=== PATIENT | female | born 1950 | race Caucasian/White ===

== ENCOUNTER → 2016-12-02 | Outpatient (CLI) | payer MEDICARE ==
[~2016-12-02] MED LIST: ALLEGRA30 MG PO; ARICEPT23MG PO; ATENOLOL25 MG PO; ATIVAN0.5 MG PO; CALCIMIN-300300 MG PO; CARAFATE1 G1 PO; CARAFATE1 GM PO; CENTRUM SILVER1 TA1 PO; CIPRO500 MG PO; CITRACAL + D 311 TAB PO; CO Q10100 MG PO; CYCLOBENZAPRINE10 MG PO; DIFLUCAN150 MG PO; FLAGYL250 MG PO; FLAGYL500 MG PO; GABAPENTIN600 MG PO; GLUCOPHAGE1000 MG PO; HUMALOG100 U/ML SC; HYDROCODONE BIT1 T11 PO; INVOKANA100 M1 PO; JANUVIA100 MG PO; KLOR-CON M2020 ME1 PO; LANTUS100 U/ML SC; LEVOTHYROXINE0.1 MG PO; LISINOPRIL40 MG PO; LISINOPRIL5 MG PO; MAGNESIUM OXID400 MG PO; METFORMIN500 MG PO; NEURONTIN800 MG PO; NEXIUM20 MG PO; NORVASC5 MG PO; PAXIL10 MG PO; PAXIL40 M1 PO; PREDNISONE50 MG PO; PRESERVISION1 SGL PO; PREVACID30 M1 PO; PREVACID30 M2 PO; PRILOSEC40 MG PO; RANITIDINE HCL300 M2 PO; ROBAXIN500 MG PO; ROBAXIN750 MG PO; SEROQUEL XR150 MG PO; SEROQUEL XR50 MG PO; SEROQUEL50 MG PO; SIMVASTATIN40 MG PO; Synthroid,Lev100 MCG PO; ULTRAM50 MG PO; VICODIN 500 MG-1 TAB PO; VICODIN ES 7501 TA1 PO; VICTOZA6 MG/ML SC; VITAMIN D31000 I1 PO
== END | disposition home or self-care (01) ==
LOC: MRI 03:12
DX: M48.06 Spinal stenosis, lumbar region (principal); M51.26 Other intervertebral disc displacement, lumbar region; M43.16 Spondylolisthesis, lumbar region; M12.88 Other specific arthropathies, not elsewhere classified, other specified site

== ENCOUNTER → 2017-08-24 | Outpatient (CLI) | payer MEDICARE ==
[2017-08-24 10:13] LABS: BILIRUBIN NEGATIVE (NEGATIVE); BLOOD NEGATIVE (NEGATIVE); CLARITY CLEAR (CLEAR); COLOR YELLOW (YELLOW); GLUCOSE 2+ (NEGATIVE); KETONE TRACE (NEGATIVE); LEUKO ESTERASE NEGATIVE (NEGATIVE); NITRITE NEGATIVE (NEGATIVE); PH 5.5 (5.0-9.0); UROBILINOGEN 0.2 E.U./dl (0.2-1.0)
[2017-08-24 10:49] LABS: ALBUMIN 3.6 gm/dl (3.1-4.5); POTASSIUM 4.4 mmol/L (3.5-5.1)
[2017-08-24 11:00] LABS: BILIRUBIN, DIRECT 0.1 mg/dL (0.0-0.2); CREATININE 1.14 mg/dL (0.55-1.02); FREE T4 1.14 ng/dl (0.76-1.46); THYROID STIM HORMONE (HS) 3.92 uIU/ml (0.358-4.75); TOTAL PROTEIN 7.7 gm/dL (6.4-8.2)
[2017-08-24 11:16] LABS: RBC 0-2 rbc/hpf (0-2)
[2017-08-24 11:20] LABS: VITAMIN D, 25-HYDROXY 41.8 ng/mL (30-100)
== END | disposition home or self-care (01) ==
LOC: LAB 09:40
PROVIDERS: Internal Medicine
DX: E11.40 Type 2 diabetes mellitus with diabetic neuropathy, unspecified (principal); E55.9 Vitamin D deficiency, unspecified; E11.65 Type 2 diabetes mellitus with hyperglycemia; E04.1 Nontoxic single thyroid nodule; E78.5 Hyperlipidemia, unspecified

== ENCOUNTER 2018-05-15 08:49 | Inpatient (IN) | payer MEDICARE ==
[~2018-05-15] VITALS: Ht 165.1 cm; Wt 92.8 kg
[2018-05-15] VITALS (7 sets, daily range): BP systolic 138–168; BP diastolic 55–74
--- NOTE | ~2018-05-15 | PR ---
[place], [place] PROGRESS NOTE NAME: PAULINA CHOE UNIT #: [id number] ROOM: 503 DOCTOR: EMMA ALDRIDGE MD BIRTHDATE: [birth year] DOS: SUBJECTIVE: The patient is not having any new complaints. OBJECTIVE: VITAL SIGNS: Graphic trend shows a pressure 152/66, pulse of 90, respirations 18, temperature 98.8. LUNGS: Clear. HEART: Regular. ABDOMEN: Obese with colostomy in place. EXTREMITIES: Without any edema. Left leg is heavily wrapped after post-surgery. ASSESSMENT AND PLAN: 1. The patient with fibular fracture, status post open reduction and internal fixation. 2. Adult failure to thrive with falls. The patient to go to [facility] today. 3. Chronic elevated white cell count. We will continue to monitor that. Her blood cultures and urine cultures were negative. Lactic acid was normal. 4. Type 2 diabetes mellitus, insulin-dependent, fairly controlled. EMMA ALDRIDGE MD CM:PNTRANS 0827 0 EMMA ALDRIDGE MD 05/20/18 011 interface
--- NOTE | ~2018-05-15 | EKG ---
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
--- NOTE | ~2018-05-15 | DS ---
[place], [place] DISCHARGE SUMMARY NAME: PAULINA HCOE [facility] #: [id number] UNIT #: [id number] ROOM: 503 DOCTOR: EMMA ALDRIDGE MD BIRTHDATE: [birth year] DOS: 05/19/2018 DIAGNOSES: 1. Fall with fracture of the fibula left and also second metatarsal. 2. Multiple falls with ambulatory dysfunction. 3. Major depression, mild, recurrent. 4. Insulin-dependent diabetes mellitus. 5. Chronic kidney disease stage 3. 6. History of transient ischemic attack. 7. Benign hypertension. 8. History of colostomy placement following colonic perforation from a colonoscopy. DISCHARGE MEDICATIONS: Atenolol 50 mg daily, Aricept 23 mg daily, multivitamin 1 tablet daily, PreserVision 1 tablet twice a day, simvastatin 40 daily, Carafate 1 gram t.i.d., lorazepam 0.5 mg twice a day p.r.n., levothyroxine 0.1 mg daily, gabapentin 800 t.i.d., metformin 1000 b.i.d., Paxil 40 daily, Seroquel 50 at bedtime and p.r.n., insulin sliding scale, mag oxide 400 twice a day, lisinopril 40 daily, vitamin D 5000 units daily, potassium 20 daily, tramadol 50 twice a day, Lantus 45 units subcutaneous 3 times a day; Victoza, which is increased to 1.2 mg daily, she is usually taking 0.6; Tylenol 650 q. 6 hours p.r.n. for pain. HOSPITAL COURSE: This patient is 68 years old, had a fall at home and was brought into the Emergency Room because she was unable to walk and was found to have a left fibular fracture. After admission, Dr. Trevino was consulted. The patient was taken for surgery on the third day, the hold was because of elevated white cell count, has continued to remain elevated, even though the urine and blood cultures have come back negative. The patient has a colostomy and does not have any evidence of infection. She is not running any fever. She is hemodynamically stable. The patient after surgery continues to remain stable without any new complaints. Pain is controlled with p.o. pain medications. Last labs are from 05/18/2018, glucose 144, BUN 15, creatinine 0.80, sodium 137, potassium 4.0, WBC count is 12.4, hemoglobin 10.8, hematocrit 74.7 Please also start the patient on Ceftin 250 twice a day for 5 days and please do a CBC on Tuesday. [place], [place] DISCHARGE SUMMARY NAME: PAULINA CHOE UNIT #: [id number] ROOM: [facility] DOCTOR: EMMA ALDRIDGE MD BIRTHDATE: [birth year] EMMA ALDRIDGE MD CM:DISCHARG 9 1 EMMA ALDRIDGE MD 05/19/18911 interface
--- NOTE | ~2018-05-15 | WRIGHTHP ---
[place], [place] PATIENT HISTORY AND PHYSICAL EXAM [id number] UN[facility] #: [id number] ROOM: 503 DOCTOR: EMMA ALDRIDGE MD BIRTHDATE: [birth year] DOS: 05/15/2018 HISTORY OF PRESENT ILLNESS: The patient is 68-year-old. The patient comes in with complaints of pain in the left ankle. The patient apparently had a fall at home and has been increasingly having a hard time putting weight on it. As per the family members, she has had multiple falls lately and has a very unsteady gait also, so she was brought to the Emergency Room where she was evaluated and was found to have a fibular fracture as well as comminuted fracture of the base of the second metatarsal. The patient has been admitted for further evaluation. This morning complaints of pain, but otherwise is not having any complaints. Denies any chest pains, palpitations or shortness of breath. PAST MEDICAL HISTORY: Significant for: 1. Last hospitalization in December 2013. 2. She has history of major depression, mild, recurrent. 3. Insulin-dependent diabetes mellitus. 4. Chronic kidney disease stage 3. 5. History of TIA. MEDICATIONS: She is on atenolol 25 b.i.d., vitamin D 5000 units daily, cyclobenzaprine 10 t.i.d., donepezil 23 mg at bedtime, gabapentin 800 mg t.i.d., levothyroxine 0.1 mg daily, lisinopril 40 daily, lorazepam 0.5 IV twice a day, mag oxide 400 b.i.d., metformin 1000 b.i.d., Paxil 40 daily, potassium 20 daily, Seroquel 50 bedtime, simvastatin 40 daily, Carafate 1 gram t.i.d. tramadol 50 twice a day, Victoza 0.6, Lantus insulin 45 units subcutaneous 3 times a day. SOCIAL HISTORY: Nonsmoker, does not use any alcohol. PHYSICAL EXAMINATION: GENERAL: She is awake and alert and oriented. VITAL SIGNS: Graphic trend shows that she is afebrile, blood pressure is 132/70, pulse of 76, respirations 18, afebrile. LUNGS: Diminished breath sounds. No wheezes, rales or rhonchi heard. HEART: Regular. ABDOMEN: Obese, soft, nontender. EXTREMITIES: Without any edema on the right, left in a splint. LABORATORY DATA: At the time of admission: Urine culture, no bacterial growth. Lactic acid 2.9. CT of the head negative except for small vessel disease of the brain, osteoarthritis of cervical spine along with spurs. Comprehensive: Glucose 453, BUN 13, creatinine 1.11, sodium 131, potassium 4.3, chloride 99, lipase 442. C-reactive protein 1. 70. Troponin 0.05. WBC count is 14.8. ASSESSMENT AND PLAN: 1. This is a patient who presents after a fall. She has history of multiple falls with frailty. The patient will be admitted. Consult Dr. Trevino. 2. Lactic acidosis, elevated white cell count. Urine culture is already negative. Lactic acid slowly coming down. IV fluids will be ordered and repeat lactic acid and white cell count will be obtained. 3. Type 2 diabetes mellitus, insulin-dependent, poorly controlled. Coverage [place], [place] PATIENT HISTORY AND PHYSICAL EXAM NAME: PAULINA CHOE UNIT #: [id number] ROOM: [facility] DOCTOR: EMMA ALDRIDGE MD BIRTHDATE: [birth year] scale will be ordered. She is on multiple medications. Increase the Victoza. 4. High risk for fall. She is on gabapentin, lorazepam, Seroquel and Flexeril. Polypharmacy needs to be addressed. EMMA ALDRIDGE MD CM:HISPHYS:PATIENT HISTORY AND PHYSICAL EXAMINATION 5 3 EMMA ALDRIDGE MD 05/16/18 0935 interface
--- NOTE | ~2018-05-15 | PR ---
[place], [place] PROGRESS NOTE NAME: PAULINA CHOE UNIT #: [id number] ROOM: 503 DOCTOR: EMMA ALDRIDGE MD BIRTHDATE: [birth year] DOS: SUBJECTIVE: The patient is doing fine without any complaints other than some discomfort in the left leg. OBJECTIVE: VITAL SIGNS: Graphic trend shows a pressure 134/51, pulse of 85, respirations 12, temperature 98.5. LUNGS: Clear. HEART: Regular. ABDOMEN: Obese, soft. EXTREMITIES: Without any edema. Left leg in a splint. LABORATORY DATA: Urine culture negative. Blood cultures negative. Lactic acid normal at 1.1. White cell count down to 11.7, platelets 423, hemoglobin 10.9, hematocrit 36.7. BMP: Glucose 254. Electrolytes normal. BUN and creatinine normal. ASSESSMENT AND PLAN: 1. A 68-year-old patient status post fall with fibular fracture, awaiting surgical stabilization, scheduled for tomorrow. 2. Elevated white cell count, possible stress effect. No underlying infectious process noted. The patient is hemodynamically stable. Cultures are negative. Lactic acid normalized. 3. Type 2 diabetes mellitus, insulin-dependent, Victoza dosage was increased. Further adjustments in meds to be made. EMMA ALDRIDGE MD CM:PNTRANS 0826 0 EMMA ALDRIDGE MD 05/18/18120 interface
--- NOTE | ~2018-05-15 | O ---
[place], [place] OPERATIVE NOTE [id number] #: [id number] ROOM: 503 DOCTOR: COLTEN TREVINO DO BIRTHDATE: [birth year] DOS: 05/18/2018 PREOPERATIVE DIAGNOSIS: Left distal fibular fracture. POSTOPERATIVE DIAGNOSIS: Left distal fibular fracture. OPERATIVE PROCEDURE: Open reduction and internal fixation of left distal fibular fracture. SURGEON: Colten Trevino DO FIRST ASSISTANTS: Martin and Pita. ANESTHESIOLOGIST: LAMAR Contreras. ANESTHESIA: General LMA intubation. INDICATIONS: The patient is a 68-year-old female with a fall on 05/15/2018, suffering a fracture of the left distal fibula with angulation and displacement. The risks and benefits of the surgery were explained to the patient preoperatively. Preoperative labs and x-rays were obtained. The patient was medically optimized. PROCEDURE IN DETAIL: The patient was brought to the operative suite, placed supine on the operative table and the general anesthetic with LMA intubation was performed. The left lower extremity had been previously marked in the holding room. The left lower extremity was prepped and draped in the usual orthopedic manner. Tourniquet was applied to the left upper thigh. The extremity was exsanguinated and the tourniquet was inflated to 350 mmHg. The fracture was evaluated under C-arm. A lateral incision was planned over the distal fibular shaft. The incision was made sharply with a scalpel approximately 14 cm. Subcutaneous tissue was spread down to the level of the bone. The periosteum was cleared from the immediate fracture site and any hematoma was cleared as well. A direct reduction was performed and held with a bone holding clamp. A lag screw was placed from anterior to posterior using the standard technique. A partially threaded cancellous screw measuring 18 mm was placed. Positioning was evaluated under C-arm in multiple planes. When this was found to be adequate, a 7-hole 1/3rd tubular plate was bent to the configuration of the distal fibula. The plate holes were drilled and filled with the appropriate size cortical and cancellous screws. C-arm was utilized intermittently to evaluate the positioning of the plate and screws. When this was completed, the ankle was evaluated for stability and noted to be stable. The area was copiously irrigated with normal saline and closed in a layered fashion with 2-0 and 3-0 Vicryl followed by skin tri. The area was injected with Marcaine 0.5% plain. An additional x-ray was obtained at the foot to evaluate the base of the second metacarpal fracture. This appeared to be in a nondisplaced position. The dressing was performed utilizing Xeroform, 4 x 4s, cast padding, ABDs and a well-padded posterior splint with a reinforcing stirrup. The splint was extended to the end of the toes due to the second metacarpal fracture. The [place], [place] OPERATIVE NOTE NAME: PAULINA CHOE UNIT #: [id number] ROOM: [facility] DOCTOR: COLTEN TREVINO DO BIRTHDATE: [birth year] tourniquet was released. The anesthetic was reversed. The patient was taken to the recovery room in satisfactory condition. Sponge and needle count correct. ESTIMATED BLOOD LOSS: 10 mL. SPECIMENS: None. DRAINS: None. PACKING: None. COMPLICATIONS: None. FINDINGS: Nondisplaced fracture of the second metatarsal base, displaced fracture of the distal fibular spiral oblique. IMPLANTS: Synthes 7-hole 1/3rd tubular plate, Synthes screws 4.0 partially threaded cancellous 18 mm, 4.0 fully threaded cancellous 20 mm, 18 mm, 16 mm, 3.5, fully threaded cortical screws 16 mm, 16 mm, 14 mm. COLTEN TREVINO DO CM:OPRECORD:OPERATIVE NOTE 1625 47 COLTEN TREVINO DO 05/26/189 interface
[2018-05-15 09:26] LABS: BASO # 0.2 10*3/uL (0.0-0.1); EOS # 0.3 10*3/uL (0.0-0.4); EOS % 1.8 % (1.0-4.0); HEMATOCRIT 38.6 % (37.0-47.0); HEMOGLOBIN 11.5 g/dl (12.0-16.0); LYMPH # 1.9 10*3/uL (1.3-4.4); LYMPH % 12.5 % (27.0-41.0); MEAN CELL VOLUME 72.7 fl (81.0-99.0); MEAN CORPUSCULAR HGB 21.7 pg (27.0-31.0); MEAN CORPUSCULAR HGB CONC 29.8 g/dl (33.0-37.0); MEAN PLATELET VOLUME 9.4 fl (9.6-12.3); MONO # 0.7 10*3/uL (0.1-1.0); MONO % 4.5 % (3.0-9.0); NEUT # 11.8 10*3/uL (2.3-7.9); NEUT % 79.8 % (47.0-73.0); PLATELET COUNT AUTOMATED 456 10*3/uL (130-400); RED BLOOD COUNT 5.31 10*6/uL (4.10-5.10); RED CELL DISTRI WIDTH 18.7 % (0-14.5); WHITE BLOOD COUNT 14.8 10*3/uL (4.8-10.8)
[2018-05-15 09:34] LABS: ACT PARTIAL THROMBO TIME 21.4 SECONDS (20.8-31.5)
[2018-05-15 09:40] LABS: ALBUMIN 3.3 gm/dl (3.1-4.5); ALKALINE PHOSPHATASE 143 U/L (45-117); BUN 13 mg/dl (7-24); CHLORIDE 99 mmol/L (98-107); CREATININE 1.11 mg/dL (0.55-1.02); LIPASE 442 U/L (73-393); POTASSIUM 4.3 mmol/L (3.5-5.1); SGOT/AST 33 IU/L (3-35); SGPT/ALT 48 U/L (12-78); SODIUM 131 mmol/L (136-145)
[2018-05-15 09:51] LABS: TROPONIN I < 0.015 ng/ml (<0.045)
[2018-05-15 11:18] LABS: BILIRUBIN NEGATIVE (NEGATIVE); BLOOD TRACE-LYSED (NEGATIVE); CLARITY CLEAR (CLEAR); COLOR YELLOW (YELLOW); GLUCOSE 3+ (NEGATIVE); KETONE 1+ (NEGATIVE); LEUKO ESTERASE NEGATIVE (NEGATIVE); NITRITE NEGATIVE (NEGATIVE); SPECIFIC GRAVITY 1.015 (1.005-1.030); UROBILINOGEN 0.2 E.U./dl (0.2-1.0)
[2018-05-15 11:44] LABS: BACTERIA TRACE
[2018-05-15] MEDS ORDERED: CYCLOBENZAPRINE10 MG PO (15:41)
[2018-05-15] MEDS ORDERED: VICTOZA 3-PAK6 MG/ML SC (15:42)
[2018-05-15] MEDS ORDERED: TRAMADOL HCL50 MG PO (15:43)
[2018-05-15] MEDS ORDERED: LANTUS SOL100 UNIT/1 SQ (15:44)
[2018-05-15] MEDS ORDERED: TYLENOL325 M3 PO (15:55)
[2018-05-15] MEDS ORDERED: VICTOZA 2-0.6 MG/0.1 SQ (16:48)
[2018-05-16] VITALS: BP 153/64
[2018-05-16 08:00] VITALS: BP 147/58
[2018-05-16 10:20] LABS: BASO # 0.1 10*3/uL (0.0-0.1); EOS # 0.3 10*3/uL (0.0-0.4); EOS % 2.1 % (1.0-4.0); HEMATOCRIT 36.2 % (37.0-47.0); HEMOGLOBIN 10.7 g/dl (12.0-16.0); LYMPH # 2.4 10*3/uL (1.3-4.4); MEAN CELL VOLUME 72.5 fl (81.0-99.0); MEAN CORPUSCULAR HGB 21.4 pg (27.0-31.0); MEAN CORPUSCULAR HGB CONC 29.6 g/dl (33.0-37.0); MEAN PLATELET VOLUME 9.3 fl (9.6-12.3); MONO # 0.8 10*3/uL (0.1-1.0); MONO % 6.7 % (3.0-9.0); NEUT # 8.3 10*3/uL (2.3-7.9); NEUT % 69.7 % (47.0-73.0); PLATELET COUNT AUTOMATED 446 10*3/uL (130-400); RED BLOOD COUNT 4.99 10*6/uL (4.10-5.10); RED CELL DISTRI WIDTH 18.7 % (0-14.5); WHITE BLOOD COUNT 11.9 10*3/uL (4.8-10.8)
[2018-05-16 12:00] VITALS: BP 152/62
[2018-05-16 16:00] VITALS: BP 160/73
[2018-05-16 20:00] VITALS: BP 145/72
[2018-05-17] VITALS: BP 149/65
[2018-05-17 06:07] LABS: BUN 14 mg/dl (7-24); CHLORIDE 102 mmol/L (98-107); CREATININE 0.91 mg/dL (0.55-1.02); POTASSIUM 4.3 mmol/L (3.5-5.1); SODIUM 137 mmol/L (136-145)
[2018-05-17 06:09] LABS: BASO # 0.2 10*3/uL (0.0-0.1); BASO % 1.3 % (0.0-1.0); EOS # 0.4 10*3/uL (0.0-0.4); EOS % 3.5 % (1.0-4.0); HEMATOCRIT 36.7 % (37.0-47.0); HEMOGLOBIN 10.9 g/dl (12.0-16.0); LYMPH # 3.3 10*3/uL (1.3-4.4); MEAN CELL VOLUME 72.7 fl (81.0-99.0); MEAN CORPUSCULAR HGB 21.6 pg (27.0-31.0); MEAN CORPUSCULAR HGB CONC 29.7 g/dl (33.0-37.0); MEAN PLATELET VOLUME 9.5 fl (9.6-12.3); MONO # 0.9 10*3/uL (0.1-1.0); MONO % 8.1 % (3.0-9.0); NEUT # 6.9 10*3/uL (2.3-7.9); NEUT % 58.8 % (47.0-73.0); PLATELET COUNT AUTOMATED 423 10*3/uL (130-400); RED BLOOD COUNT 5.05 10*6/uL (4.10-5.10); RED CELL DISTRI WIDTH 18.5 % (0-14.5); WHITE BLOOD COUNT 11.7 10*3/uL (4.8-10.8)
[2018-05-17 08:00] VITALS: BP 134/51
[2018-05-17 12:00] VITALS: BP 124/41
[2018-05-17 16:00] VITALS: BP 144/55
[2018-05-17 20:00] VITALS: BP 151/58
[2018-05-18] VITALS (13 sets, daily range): BP systolic 116–153; BP diastolic 50–82
[2018-05-18 06:35] LABS: BASO # 0.1 10*3/uL (0.0-0.1); BASO % 1.1 % (0.0-1.0); EOS # 0.6 10*3/uL (0.0-0.4); EOS % 4.6 % (1.0-4.0); HEMOGLOBIN 10.8 g/dl (12.0-16.0); LYMPH # 3.3 10*3/uL (1.3-4.4); MEAN CELL VOLUME 74.7 fl (81.0-99.0); MEAN CORPUSCULAR HGB 21.2 pg (27.0-31.0); MEAN CORPUSCULAR HGB CONC 28.4 g/dl (33.0-37.0); MEAN PLATELET VOLUME 9.5 fl (9.6-12.3); MONO # 0.9 10*3/uL (0.1-1.0); MONO % 7.5 % (3.0-9.0); NEUT # 7.4 10*3/uL (2.3-7.9); NEUT % 59.5 % (47.0-73.0); PLATELET COUNT AUTOMATED 414 10*3/uL (130-400); RED BLOOD COUNT 5.09 10*6/uL (4.10-5.10); RED CELL DISTRI WIDTH 19.2 % (0-14.5); WHITE BLOOD COUNT 12.4 10*3/uL (4.8-10.8)
[2018-05-18 06:50] LABS: BUN 15 mg/dl (7-24); CHLORIDE 102 mmol/L (98-107); SODIUM 137 mmol/L (136-145)
[2018-05-19] VITALS: BP 152/66
[2018-05-19 06:22] LABS: BASO # 0.1 10*3/uL (0.0-0.1); BASO % 0.8 % (0.0-1.0); EOS # 0.5 10*3/uL (0.0-0.4); EOS % 3.6 % (1.0-4.0); HEMOGLOBIN 10.1 g/dl (12.0-16.0); LYMPH # 1.9 10*3/uL (1.3-4.4); LYMPH % 14.9 % (27.0-41.0); MEAN CELL VOLUME 74.6 fl (81.0-99.0); MEAN CORPUSCULAR HGB 21.5 pg (27.0-31.0); MEAN CORPUSCULAR HGB CONC 28.9 g/dl (33.0-37.0); MEAN PLATELET VOLUME 9.3 fl (9.6-12.3); MONO # 0.9 10*3/uL (0.1-1.0); MONO % 6.9 % (3.0-9.0); NEUT # 9.6 10*3/uL (2.3-7.9); NEUT % 73.3 % (47.0-73.0); PLATELET COUNT AUTOMATED 405 10*3/uL (130-400); RED BLOOD COUNT 4.69 10*6/uL (4.10-5.10); RED CELL DISTRI WIDTH 18.8 % (0-14.5); WHITE BLOOD COUNT 13.1 10*3/uL (4.8-10.8)
[2018-05-19 08:00] VITALS: BP 154/60
[2018-05-19 12:00] VITALS: BP 150/68
== END 2018-05-19 14:52 | disposition other institution (70) | DRG 493 ==
LOC: ED 08:49 → EDHOLD 12:27 → 5E 12:27
PROVIDERS: Emergency Medicine; Internal Medicine; Orthopaedic Surgery
PROC: 0QSK04Z Reposition Left Fibula with Internal Fixation Device, Open Approach (ICD-10-PCS; principal; 2018-05-18)
DX: S82.832A Other fracture of upper and lower end of left fibula, initial encounter for closed fracture (principal); E87.2 Acidosis; R65.10 Systemic inflammatory response syndrome (SIRS) of non-infectious origin without acute organ dysfunction; F33.0 Major depressive disorder, recurrent, mild; E11.22 Type 2 diabetes mellitus with diabetic chronic kidney disease; N18.3 Chronic kidney disease, stage 3 (moderate); E11.65 Type 2 diabetes mellitus with hyperglycemia; I12.9 Hypertensive chronic kidney disease with stage 1 through stage 4 chronic kidney disease, or unspecified chronic kidney disease; R62.7 Adult failure to thrive; S92.322A Displaced fracture of second metatarsal bone, left foot, initial encounter for closed fracture; W18.39XA Other fall on same level, initial encounter; Y93.89 Activity, other specified; Y92.89 Other specified places as the place of occurrence of the external cause; Y99.8 Other external cause status; Z86.73 Personal history of transient ischemic attack (TIA), and cerebral infarction without residual deficits; Z88.1 Allergy status to other antibiotic agents; Z88.8 Allergy status to other drugs, medicaments and biological substances; Z93.3 Colostomy status; Z79.899 Other long term (current) drug therapy; Z91.81 History of falling

== ENCOUNTER → 2018-06-12 | Outpatient (CLI) | payer MEDICARE ==
[~2018-06-12] MED LIST changes: +LANTUS SOL100 UNIT/1 SQ; +TRAMADOL HCL50 MG PO; +TYLENOL325 M3 PO; +VICTOZA 2-0.6 MG/0.1 SQ; +VICTOZA 3-PAK6 MG/ML SC
== END | disposition home or self-care (01) ==
LOC: ORTHO 02:11
DX: S82.832D Other fracture of upper and lower end of left fibula, subsequent encounter for closed fracture with routine healing (principal); X58.XXXD Exposure to other specified factors, subsequent encounter; Z98.890 Other specified postprocedural states

== ENCOUNTER → 2018-07-14 | Outpatient (CLI) | payer MEDICARE | END | disposition home or self-care (01) | LOC: ORTHO 01:35 | DX: S92.322D Displaced fracture of second metatarsal bone, left foot, subsequent encounter for fracture with routine healing (principal); S82.292D Other fracture of shaft of left tibia, subsequent encounter for closed fracture with routine healing; S82.492D Other fracture of shaft of left fibula, subsequent encounter for closed fracture with routine healing; X58.XXXD Exposure to other specified factors, subsequent encounter ==

== ENCOUNTER → 2018-08-02 | Outpatient (CLI) | payer MEDICARE | END | disposition home or self-care (01) | LOC: ORTHO 02:20 | DX: S82.832D Other fracture of upper and lower end of left fibula, subsequent encounter for closed fracture with routine healing (principal); S92.325D Nondisplaced fracture of second metatarsal bone, left foot, subsequent encounter for fracture with routine healing; X58.XXXD Exposure to other specified factors, subsequent encounter ==

== ENCOUNTER 2018-11-20 10:58 | Inpatient (IN) | payer MEDICARE ==
[~2018-11-20] VITALS: Ht 167.6 cm; Wt 84.5 kg
[2018-11-20] VITALS (8 sets, daily range): BP systolic 147–180; BP diastolic 47–71
--- NOTE | ~2018-11-20 | PR ---
[place], [place] PROGRESS NOTE NAME: PAULINA CHOE UNIT #: [id number] ROOM: 507 DOCTOR: SCAR BARRAZA MD BIRTHDATE: [birth year] DOS: 11/23/2018 SUBJECTIVE: The patient is still complaining of dizziness. Blood pressure is slightly high. The patient is already on meclizine. OBJECTIVE: PHYSICAL EXAMINATION: GENERAL APPEARANCE: The patient is alert and oriented x 3, in no visible distress. Obesity and generalized weakness. VITAL SIGNS: Blood pressure 174/50, breathing 18 times per minute, temperature 98.4 degrees Fahrenheit, heart rate of 72 beats per minute. HEENT AND NECK: Exam within normal limits. CARDIOVASCULAR SYSTEM: Heart rate is regular in rate and rhythm. S1 and S2 normally audible. LUNGS: Clear to auscultation. ABDOMEN: Soft, nontender. No obvious organomegaly. Bowel sounds are present. EXTREMITIES: Without significant cyanosis or edema. IMPRESSION: 1. Persistent dizziness even after Antivert dose increased. I will check a carotid arterial Dopplers today, now. 2. Hypertension with elevated blood pressures, which can also result in dizziness. I will increase her Norvasc to 10 mg a day, starting today. 3. Urinary tract infection and leukocytosis. Urine cultures growing Enterococcus faecalis sensitive to Levaquin, which has already been started. 4. Major depression, recurrent, mild, treated and controlled with Paxil. 5. Mild leukocytosis, apparently from urinary tract infection. 6. Late onset Alzheimer's type dementia. The patient remains on Aricept. 7. Advance adult failure to thrive. The patient is working with physical therapy and we are taking bedsore and fall precautions. SCAR BARRAZA MD CM:PNTRANS 1040 1629 SCAR BARRAZA MD 11/23/18 1630 interface
--- NOTE | ~2018-11-20 | DS ---
[place], [place] DISCHARGE SUMMARY NAME: PAULINA CHOE [facility] #: [id number] UNIT #: [id number] ROOM: 507 DOCTOR: SCAR BARRAZA MD BIRTHDATE: [birth year] DOS: 11/25/2018 DISCHARGE DIAGNOSES: 1. Urinary tract infection with Enterococcus faecalis. 2. Chronic dizziness. 3. Benign essential hypertension. 4. Major depression, recurrent, mild. 5. Advanced adult failure to thrive. 6. Late onset Alzheimer's type dementia. 7. Type 2 diabetes mellitus. 8. Chronic kidney disease stage 3, 9. Diabetic nephropathy. 10. History of colonic perforation from colonoscopy with colostomy. 11. History of peripheral diabetic polyneuropathy. 12. Generalized anxiety disorder. 13. Hypothyroidism. 14. Vitamin D deficiency. 15. Morbid obesity. HOSPITAL COURSE: The patient presented to [facility] with increased complaint of weakness, difficulty in getting up and able to ambulate or transfer. Blood pressure was elevated. There was increased loss of balance and dizziness with generalized weakness. The patient was found to have urinary tract infection, which was appropriately treated. Urine cultures grew Enterococcus faecalis. The patient continued to complain of dizziness, for which we did further workup with carotid arterial Dopplers. An ear exam was also performed. The patient with some stiffness and tremors and difficulty with ambulation. I will give her a trial of Sinemet for a month to see if her symptoms improve. Major depression, recurrent, mild, treated with Paxil, asymptomatic. Altered mental status and metabolic encephalopathy from urinary tract infection, improved with treatment with antibiotics. Advance adult failure to thrive and ambulatory dysfunction. The patient worked with Physical Therapy. Left lower lobe pneumonia, treated with antibiotics. Acute benign positional vertigo, treated with Antivert. LABORATORY DATA: White cell count of 12,700, hemoglobin 9.8, platelets 503,000. DISCHARGE MANAGEMENT: Sinemet 50/250 three times a day, Lantus insulin 30 units subcutaneous daily, Tradjenta 5 mg a day, famotidine 20 mg a day, Paxil 40 mg a day, donepezil 20 mg daily, atenolol 50 mg a day, amlodipine 5 mg a day, metformin 1000 mg b.i.d., levothyroxine 100 mcg daily, tramadol 50 mg b.i.d., [place], [place] DISCHARGE SUMMARY NAME: PAULINA CHOE UNIT #: [id number] ROOM: 507 DOCTOR: SCAR BARRAZA MD BIRTHDATE: [birth year] Carafate 1 gram t.i.d., Naprosyn 375 mg b.i.d., gabapentin 800 mg 3 times a day, DuoNeb every 4 hours as needed, lorazepam 0.5 mg b.i.d. as needed for anxiety. SCAR BARRAZA MD CM:BECKY 30 30 SCAR BARRAZA MD 11/25/182130 interface
--- NOTE | ~2018-11-20 | PR ---
[place], [place] PROGRESS NOTE NAME: PAULINA CHOE UNIT #: [id number] ROOM: 507 DOCTOR: SCAR BARRAZA MD BIRTHDATE: [birth year] DOS: 11/24/2018 SUBJECTIVE: The patient is still complaining of significant dizziness, although she has been sleeping significantly with the present dose of Antivert. OBJECTIVE: VITAL SIGNS: Blood pressure 156/54, heart rate of 65 beats per minute, breathing 18 times per minute, temperature 98 degrees Fahrenheit. GENERAL APPEARANCE: The patient is alert and oriented x 3, in no visible distress. Generalized weakness. HEENT AND NECK: Exam within normal limits. CARDIOVASCULAR SYSTEM: Heart rate is regular in rate and rhythm. S1 and S2 normally audible. LUNGS: Clear to auscultation. ABDOMEN: Soft, nontender. No obvious organomegaly. Bowel sounds are present. Obesity. EXTREMITIES: Without significant cyanosis or edema. IMPRESSION AND PLAN: 1. Persistent complaints of dizziness, no seizure, no significant vertigo. The patient is being treated with Antivert. Ear exams have been normal. The blood pressures have improved with increase in treatment. Carotid arterial Dopplers showed less than 50% stenosis. The patient continues to do well. I will discharge her back to home tomorrow. 2. Benign essential hypertension with better controlled blood pressures after increase in dose of Norvasc yesterday. 3. Urinary tract infection and leukocytosis resolved with treatment for Enterococcus faecalis, positive urine cultures which were sensitive to Levaquin. The patient already on this antibiotic. 4. Major depression, recurrent, mild, treated and controlled with Paxil. Mild leukocytosis, apparently from urinary tract infection. 5. Obesity. The patient is working with Dietary. Obesity with BMI of 30. 6. Advanced adult failure to thrive. The patient working with physical therapy and we are taking bedsore and fall precautions. [place], [place] PROGRESS NOTE NAME: PAULINA CHOE UNIT #: [id number] ROOM: 507 DOCTOR: SCAR BARRAZA MD BIRTHDATE: [birth year] SCAR BARRAZA MD CM:PNTRANS 1704 SCAR BARRAZA MD 11/25/18 0307 interface
--- NOTE | ~2018-11-20 | PR ---
[place], [place] PROGRESS NOTE NAME: PAULINA CHOE UNIT #: [id number] ROOM: 507 DOCTOR: SCAR BARRAZA MD BIRTHDATE: [birth year] DOS: 11/21/2018 SUBJECTIVE: The patient is feeling quite dizzy any time she moves her head this morning. OBJECTIVE: VITAL SIGNS: Blood pressure 132/68, heart rate of 71 beats per minute, temperature 98.3 degrees Fahrenheit, pulse ox 93-95%, breathing 18 times per minute. GENERAL APPEARANCE: The patient is alert and oriented x 3, in no visible distress, except for morbid obesity HEENT AND NECK: Exam within normal limits. CARDIOVASCULAR SYSTEM: Heart rate is regular in rate and rhythm. S1 and S2 normally audible. LUNGS: Clear to auscultation. ABDOMEN: Soft, nontender. No obvious organomegaly. Bowel sounds are present. EXTREMITIES: Without significant cyanosis or edema. IMPRESSION AND PLAN: 1. The patient with acute benign positional vertigo, to be treated with Antivert. 2. Urinary tract infection with urine cultures growing more than 100,000 colonies, to be treated according to culture results. The patient has a white cell count of 12,700. 3. Advance adult failure to thrive. We are taking fall precautions. The patient is to work with Physical Therapy. 4. Late onset Alzheimer's type dementia. The patient is on Aricept. 5. Major depression, recurrent, mild, treated with Paxil. 6. Benign essential hypertension, treated with amlodipine. Blood pressure is monitored and treated and staying normal. 7. Altered mental status from metabolic encephalopathy related to urine infection, improving with treatment. 8. Adult failure to thrive and ambulatory dysfunction. The patient is working with Physical Therapy. 9. Left lower lobe pneumonia, being treated with antibiotic and being followed closely. [place], [place] PROGRESS NOTE NAME: PAULINA CHOE UNIT #: [id number] ROOM: 507 DOCTOR: SCAR BARRAZA MD BIRTHDATE: [birth year] SCAR BARRAZA MD CM:PNTRANS 1027 1707 SCAR BARRAZA MD 11/21/18 1707 interface
--- NOTE | ~2018-11-20 | PR ---
[place], [place] PROGRESS NOTE NAME: PAULINA CHOE UNIT #: [id number] ROOM: 507 DOCTOR: SCAR BARRAZA MD BIRTHDATE: [birth year] DOS: 11/22/2018 OBJECTIVE: GENERAL APPEARANCE: The patient is alert and oriented x 3, in no visible distress. Generalized weakness VITAL SIGNS: Blood pressure 141/62, heart rate of 72 beats per minute, afebrile, temperature 98.3 degrees Fahrenheit, pulse ox 94%. HEENT AND NECK: Exam within normal limits. CARDIOVASCULAR SYSTEM: Heart rate is regular in rate and rhythm. S1 and S2 normally audible. LUNGS: Clear to auscultation. ABDOMEN: Soft, nontender. No obvious organomegaly. Bowel sounds are present. EXTREMITIES: Without significant cyanosis or edema. IMPRESSION: 1. The patient with benign positional vertigo, not improved. I will increase Antivert 50 mg 3 times a day. As an outpatient, she will need ENT consult. There is no ENT consultation available at the hospital. 2. Bilateral ear exams showed wax in the left ear. Right ear exam was normal. 3. Advance of adult failure to thrive, we are taking fall precautions and bedsore precautions. The patient is working with physical therapy. 4. Late onset Alzheimer's type dementia, being treated with Aricept. 5. Urinary tract infection with Enterococcus faecalis sensitive to all antibiotics, but tetracycline. 6. Mild leukocytosis, white cell count of 12,700. I will switch her antibiotics to Levaquin. 7. Metabolic encephalopathy, altered mental status, improved with treatment of urinary tract infection. 8. Major depression, recurrent, mild, treated and controlled with Paxil, which is continued. SCAR BARRAZA MD CM:PNTRANS 1036 1628 SCAR BARRAZA MD 11/22/18 1629 interface
--- NOTE | ~2018-11-20 | WRIGHTHP ---
[place], [place] PATIENT HISTORY AND PHYSICAL EXAM NAME: PAULINA CHOE [facility] #: [id number] UNIT #: [id number] ROOM: 507 DOCTOR: SCAR BARRAZA MD BIRTHDATE: [birth year] DOS: 11/20/2018 HISTORY OF PRESENT ILLNESS: The patient is a 68-year-old female with a past medical history of; 1. Advanced adult failure to thrive. 2. Late onset Alzheimer's type dementia. 3. Benign essential hypertension. 4. Type 2 diabetes mellitus. 5. Major depression, recurrent, mild. 6. Chronic kidney disease stage 3, diabetic nephropathy. 7. Transient ischemic attack. 8. History of colonic perforation from colonoscopy in the past and colostomy. 9. Peripheral diabetic polyneuropathy. 10. Generalized anxiety disorder. 11. Hypothyroidism. 12. Vitamin D deficiency. 13. Morbid obesity. The patient is doing well. The patient presented to the Emergency Department at [facility] with complaints of weakness, difficulty in getting up and inability to ambulate, elevated blood pressures, loss of balance, dizziness and generalized weakness. In the ER, the patient was found to have a pneumonic infiltrate on the chest x-ray. The patient has not been complaining of choking on her food. REVIEW OF SYSTEMS: RESPIRATORY: No increasing shortness of breath. GASTROINTESTINAL: No nausea, vomiting, diarrhea, constipation. CARDIOVASCULAR SYSTEM: No chest pains or palpitations. ALLERGIES: Known allergies to CECLOR, MEPERIDINE. PHYSICAL EXAMINATION: GENERAL: Alert, oriented x 3, in no visible distress, generalized weakness, obesity. HEENT AND NECK: Extraocular movements are intact. Sclerae are anicteric. Oral mucosa is moist and clean. No obvious facial weakness. Neck is supple without any lymphadenopathy. No thyromegaly. No JVD. No carotid arterial bruits. LUNGS: Clear to auscultation. No wheezing. No rhonchi. CARDIOVASCULAR SYSTEM: Heart rate is regular in rate and rhythm. S1 and S2 normally audible. No significant murmur or any other abnormal cardiac sounds. ABDOMEN: Soft, nontender. No obvious organomegaly. Bowel sounds are present. No obvious herniation. EXTREMITIES: Without significant cyanosis or edema. Warm to touch. CENTRAL NERVOUS SYSTEM: Alert and oriented x 3. Cranial nerves II-XII are intact. Speech is normal. The patient is able to move all extremities. Normal muscle strength. Deep tendon reflexes are equal on both sides. Plantars were downgoing. LABORATORY DATA: Chest x-ray showing left lower lobe infiltrate. Cardiac enzymes were negative. Lactic acid level was elevated at 2.9. CT of the head [place], [place] PATIENT HISTORY AND PHYSICAL EXAM NAME: PAULINA CHOE UNIT #: [id number] ROOM: 507 DOCTOR: SCAR BARRAZA MD BIRTHDATE: [birth year] showed chronic small vessel disease, no acute finding. Normal serum electrolytes, sugar elevated at 208. IMPRESSION: 1. The patient presenting with left lower lobe pneumonia to be treated with antibiotic and the patient will be followed closely. 2. Adult failure to thrive, ambulatory dysfunction. The patient will be started on physical therapy and followed closely. We will take bedsore and fall precautions. 3. Altered mental status from metabolic encephalopathy related to infection, improving. 4. Type 2 diabetes mellitus. The patient continued on insulin. 5. Benign essential hypertension. The patient is on amlodipine. Blood pressures to be monitored and treated. 6. Major depression, recurrent, mild, treated with Paxil, which was continued. 7. Late onset Alzheimer's type dementia. The patient remains on Aricept. SCAR BARRAZA MD CM:HISPHYS:PATIENT HISTORY AND PHYSICAL EXAMINATION 52 08 SCAR BARRAZA MD 11/20/181907 interface
--- NOTE | ~2018-11-20 | EKG ---
[place], [place] ELECTROCARDIOGRAM REPORT NAME: PAULINA CHOE UNIT #: [id number] ROOM: 507 DOCTOR: ALBERTO DRAFT REPORT BIRTHDATE: [birth year] [facility] Test Date: 2018-11-20 Test Time: 14:29:00 Pat Name: PAULINA CHOE Department: Room: [facility] Gender: F Switch Box Installer: : 1950 Requested By: FRAN PEREZ Order Number: [id number] Reading MD: Nicole Shirley MD Measurements Intervals [place] Rate: 60 P: 61 KS: 147 QRS: 53 QRSD: 82 T: 144 QT: 493 QTc: 493 Interpretive Statements Sinus rhythm Probable left atrial enlargement Abnormal R-wave progression, late transition Abnormal T, consider ischemia, lateral leads Baseline wander in lead(s) V6 Compared to ECG 10/01/2018 03:50:27 T-wave abnormality now present Possible ischemia now present Electronically Signed On 11-20-2018 14:49:20 PDT by Nicole Shirley MD CM:EKGRPT:ELECTROCARDIOGRAM REPORT 1429 1449 FRAN DOMINGUEZ DRAFT REPORT FRAN PEREZ MD
--- NOTE | ~2018-11-20 | EKG ---
[place], [place] ELECTROCARDIOGRAM REPORT NAME: PAULINA CHOE UNIT #: [id number] ROOM: 507 DOCTOR: ALBERTO DRAFT REPORT BIRTHDATE: [address] 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
--- NOTE | ~2018-11-20 | EKG ---
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
[~2018-11-20 10:58] MED LIST changes: +AMLODIPINE BESYL5 MG PO; +Carafate1 GM PO; +DONEPEZIL HYDRO23 M1 PO; +GABAPENTIN800 MG PO; +HUMALOG100 UNIT/1 SQ; +K-TAB10 MEQ PO; +LEVOFLOXACIN750 M2 PO; +LEVOTHYROXINE100 MC1 PO; +NAPROSYN EC375 MG PO; +Ondansetron8 MG IV; +SERTRALINE HYDR50 MG PO; +SUCRALFATE1 GM PO; +TENORMIN50 MG PO; +ZOCOR40 MG PO; +ZOFRAN8 M1 IV
[2018-11-20 11:20] LABS: BASO # 0.1 10*3/uL (0.0-0.1); BASO % 1.1 % (0.0-1.0); EOS # 0.1 10*3/uL (0.0-0.4); HEMATOCRIT 35.6 % (37.0-47.0); HEMOGLOBIN 10.4 g/dl (12.0-16.0); LYMPH % 15.9 % (27.0-41.0); MEAN CELL VOLUME 68.5 fl (81.0-99.0); MEAN CORPUSCULAR HGB CONC 29.2 g/dl (33.0-37.0); MEAN PLATELET VOLUME 9.1 fl (9.6-12.3); MONO # 0.8 10*3/uL (0.1-1.0); NEUT # 9.5 10*3/uL (2.3-7.9); NEUT % 75.4 % (47.0-73.0); PLATELET COUNT AUTOMATED 526 10*3/uL (130-400); RED CELL DISTRI WIDTH 18.3 % (0-14.5); WHITE BLOOD COUNT 12.7 10*3/uL (4.8-10.8)
[2018-11-20 11:37] LABS: ALBUMIN 3.4 gm/dl (3.1-4.5); ALKALINE PHOSPHATASE 96 U/L (45-117); BUN 14 mg/dl (7-24); CHLORIDE 102 mmol/L (98-107); CREATININE 0.79 mg/dL (0.55-1.02); POTASSIUM 4.3 mmol/L (3.5-5.1); SGOT/AST 12 IU/L (3-35); SGPT/ALT 22 U/L (12-78); SODIUM 138 mmol/L (136-145); TOTAL PROTEIN 7.4 gm/dL (6.4-8.2)
[2018-11-20 11:38] LABS: TROPONIN I < 0.015 ng/ml (<0.045)
[2018-11-20 13:03] LABS: BILIRUBIN NEGATIVE (NEGATIVE); BLOOD NEGATIVE (NEGATIVE); CLARITY SL CLOUDY (CLEAR); COLOR YELLOW (YELLOW); GLUCOSE 2+ (NEGATIVE); KETONE TRACE (NEGATIVE); LEUKO ESTERASE NEGATIVE (NEGATIVE); NITRITE NEGATIVE (NEGATIVE); SPECIFIC GRAVITY 1.015 (1.005-1.030); UROBILINOGEN 0.2 E.U./dl (0.2-1.0)
[2018-11-20 13:27] LABS: BACTERIA 4+; MUCOUS 2+
--- NOTE | 2018-11-20 13:31 | NUR ---
PATIENT CRITICAL RESULT CALLED AT THIS TIME. LACTIC ACID 2.9. DR PEREZ NOTIFIED.
[2018-11-20] MEDS ORDERED: RANITIDINE HCL150 M1 PO (14:02)
[2018-11-20] MEDS ORDERED: PAROXETINE40 MG PO (14:03)
--- NOTE | 2018-11-20 17:00 | NUR ---
PT RESTING IN BED. RESP-EASY AND REGULAR. DENIES DIZZINESS AT THIS TIME. PT STATES NON-AMBULATORY FOR 3 WEEKS PER PT. BED ALARM ON. CALL LIGHT IN REACH.
[2018-11-20] MEDS ORDERED: LANTUS SOL100 UNIT/1 SC (19:33)
[2018-11-21] VITALS: BP 148/61
[2018-11-21 06:55] LABS: BASO # 0.1 10*3/uL (0.0-0.1); BASO % 1.1 % (0.0-1.0); EOS # 0.3 10*3/uL (0.0-0.4); EOS % 2.1 % (1.0-4.0); HEMATOCRIT 33.8 % (37.0-47.0); HEMOGLOBIN 9.8 g/dl (12.0-16.0); LYMPH # 2.1 10*3/uL (1.3-4.4); LYMPH % 16.7 % (27.0-41.0); MEAN CELL VOLUME 69.1 fl (81.0-99.0); MEAN PLATELET VOLUME 9.8 fl (9.6-12.3); MONO # 0.8 10*3/uL (0.1-1.0); MONO % 6.3 % (3.0-9.0); NEUT # 9.4 10*3/uL (2.3-7.9); NEUT % 73.5 % (47.0-73.0); PLATELET COUNT AUTOMATED 503 10*3/uL (130-400); RED BLOOD COUNT 4.89 10*6/uL (4.10-5.10); RED CELL DISTRI WIDTH 18.3 % (0-14.5); WHITE BLOOD COUNT 12.7 10*3/uL (4.8-10.8)
[2018-11-21 08:00] VITALS: BP 132/68
--- NOTE | 2018-11-21 08:14 | NUR ---
PHYSICAL THERAPY Nursing screen received. PT orders also received. Thank you. Renee Pedro,PT
--- NOTE | 2018-11-21 08:25 | NUR ---
Nursing screen received and chart review completed. Patient may require Occupational Therapy evaluation for discharge planning as she has insurance that will require a precert to return to SNF if needed. Thank you. Lydia Lu OTR/l
--- NOTE | 2018-11-21 09:00 | NUR ---
Wire Coating Machine Operator in to talk to patient. Patient states lives at home with her POA/friend Betty Montemayor. There are 6-8 steps in the home. Physician: Dr. Ricardo Coreas Pharmacy: [facility] Home health services: [facility] RN/PT/OT/AIDES/SW currently and would like to resume those services upon discharge Patient's level of ADLs: MODERATE ASSIST Patient has working utilities: yes DME: walker, wheelchair Follow-up physician's appointment after d/c: she prefers to make her own follow up appt after discharge Does patient want to access PORTAL?: no Discharge plan discussed with patient. She lives at home with her POA/friend Betty Montemayro. She needs moderate assistance with her ADLs and ambulates with a walker or gets around in a wheelchair. Discussed short term SNF and she refuses. She states the aides at [facility] last time didn't treat her right. Questioned another SNF and she refuses. Discussed home health care services and she currently has all services from [facility] and would like to continue those services upon discharge. [facility] Resource Guide pamphlet given to patient to see about having a wheelchair ramp installed as she is having difficulties with the steps. There are 3-4 steps in the front of the house along with 3-4 steps in the back of the house. When medically stable she will be discharged to home with the resumption of her [facility] services. . BIRGIT BILLINGSLEY
--- NOTE | 2018-11-21 11:42 | NUR ---
Faxed resume home health order to [facility].
[2018-11-21 12:00] VITALS: BP 147/76; BP 155/52
--- NOTE | 2018-11-21 14:16 | NUR ---
PHYSICAL THERAPY PAtient refuses PT this date. Attempted to encourage, "Not today"! Will attempt at a later date. Thank you for this referral. Renee Pedro,PT
[2018-11-21 16:00] VITALS: BP 144/51
[2018-11-21 20:00] VITALS: BP 141/52
[2018-11-22] VITALS: BP 141/62
--- NOTE | 2018-11-22 04:22 | NUR ---
24 HR chart check completed.
[2018-11-22 08:00] VITALS: BP 162/62
--- NOTE | 2018-11-22 08:30 | NUR ---
PHYSICAL THERAPY PAtient continues to refuse PT services. Encouraged patient and educated on the importance of participation, continues to refuse. Thank you for this referral. Renee Pedro,PT
--- NOTE | 2018-11-22 09:00 | NUR ---
Lending Manager in to see patient. No new needs or request at this time. When asked about working with PT she stated she was too dizzy to work with them yet. When medically stable she will be discharged to home with the resumption of her [facility] services.
--- NOTE | 2018-11-22 11:00 | NUR ---
NICOLASA Montemayor in room asking questions about applying for Medicaid. Notified Valentina in Med Assist of NICOLASA's phone number and questions.
[2018-11-22 12:00] VITALS: BP 159/68
--- NOTE | 2018-11-22 15:26 | NUR ---
Attempted to reach, JUDITH HernandezA/friend regarding discussing home care options with area on again. No success. Will try again later.
[2018-11-22 16:00] VITALS: BP 156/61
--- NOTE | 2018-11-22 19:10 | NUR ---
PT IS ASLEEP IN BED AT THIS TIME. RESPS ARE EASY AND NONLABORED. THERE APPEARS TO BE NO S/S OF DISTRESS. BED LOW, ALARM ON, CALL LIGHT WITHIN REACH. WILL CONTINUE TO MONITOR.
[2018-11-22 20:00] VITALS: BP 159/58
--- NOTE | 2018-11-22 22:24 | NUR ---
24 HR CHART CHECK COMPLETE.
[2018-11-23] VITALS: BP 156/64
[2018-11-23 08:00] VITALS: BP 174/50
--- NOTE | 2018-11-23 08:19 | NUR ---
PHYSICAL THERAPY PAtient continues to refuse all PT attempts. Renee January Pedro,PT
--- NOTE | 2018-11-23 10:21 | NUR ---
Nutritional Support Services Note: Appetite is good for meals, she is eating 100% of meals. NCS diet as ordered. Caregiver aware of diet and has a good understanding. Will follow if needed. No other Nutrition intervention needed at this time. Alesia Sainz Rdn Ld
[2018-11-23 12:00] VITALS: BP 164/65
[2018-11-23 16:00] VITALS: BP 150/54
[2018-11-23 20:00] VITALS: BP 153/65
[2018-11-24] VITALS: BP 160/57
--- NOTE | 2018-11-24 00:05 | NUR ---
PT REFUSING DA TREATMENTS T/O THE SHIFT.
--- NOTE | 2018-11-24 09:00 | NUR ---
Destination Imagination Coordinator in to see patient. No new needs or request at this time. When medically stable she will be discharged to home with the resumption of her OV services.
--- NOTE | 2018-11-24 11:57 | NUR ---
PHYSICAL THERAPY PAtient continues to refuse all PT services. Continue to educate patient on the importance of particpation. PAtient will not even attempt to sit EOB. D/C PT orders, patient refuses. Renee Pedro,PT
[2018-11-24 12:00] VITALS: BP 150/56
--- NOTE | 2018-11-24 12:00 | NUR ---
PT SITTING UP IN BED AT THIS TIME, EATING LUNCH. FAMILY AT BEDSIDE. RESPIRATIONS EASY AND UNLABORED ON ROOM AIR. NO S/S OF DISTRESS NOTED. ALL NEEDS MET. BLOOD SUGAR OBTAINED AND WNL, COVERAGE NEEDED. WILL CONTINUE TO MONITOR. CALL LIGHT IN REACH.
[2018-11-24 16:00] VITALS: BP 156/54
[2018-11-24 20:00] VITALS: BP 141/58
--- NOTE | 2018-11-24 20:30 | NUR ---
RESTING IN BED WITH EYES OPEN. HEP LOCK INTACT TO RIGHT FOREARM; SITE ASYMPTOMATIC. LUNGS VERY DIMINISHED BILATERALLY WITH NO COUGH NOTED AT THIS TIME. 02 INTACT AT 3LPM VIA NASAL CANNULA & IS HUMIDIFIED. NO EDEMA NOTED. CALL LIGHT WITHIN REACH.
--- NOTE | 2018-11-24 20:30 | NUR ---
RESTING IN BED; VOICES NO C/O AT THIS TIME. CALL LIGHT WITHIN REACH.
--- NOTE | 2018-11-24 22:00 | NUR ---
BLOOD SUGAR 149; NO COVERAGE REQUIRED.
[2018-11-25] VITALS: BP 155/57
--- NOTE | 2018-11-25 07:01 | NUR ---
PT REFUSED SATX PT IN NO DISTRESS SPO2 92% RA
[2018-11-25 08:00] VITALS: BP 180/62
--- NOTE | 2018-11-25 11:07 | NUR ---
PT REFUSES SATX
[2018-11-25 16:00] VITALS: BP 158/71
[2018-11-25] MEDS ORDERED: SINEMET 25-2501 EACH PO (16:09)
--- NOTE | 2018-11-25 17:30 | NUR ---
PT DISCHARGED AT THIS TIME. TRANSPORTED HOME VIA [facility] PER FAMILY AND PT REQUEST. IV REMOVED AND PRESSURE DRESSING APPLIED. PT AND FAMILY VERBALIZED UNDERSTANDING OF DISCHARGE INSTRUCTIONS.
== END 2018-11-25 17:30 | disposition home health service (06) | DRG 193 ==
LOC: ED 10:58 → EDHOLD 13:24 → 5E 13:24
PROVIDERS: Emergency Medicine; ADMIT Internal Medicine
DX: J18.9 Pneumonia, unspecified organism (principal); G93.41 Metabolic encephalopathy; N39.0 Urinary tract infection, site not specified; F33.0 Major depressive disorder, recurrent, mild; H81.10 Benign paroxysmal vertigo, unspecified ear; B95.2 Enterococcus as the cause of diseases classified elsewhere; R62.7 Adult failure to thrive; G30.1 Alzheimer's disease with late onset; F02.80 Dementia in other diseases classified elsewhere, unspecified severity, without behavioral disturbance, psychotic disturbance, mood disturbance, and anxiety; E11.22 Type 2 diabetes mellitus with diabetic chronic kidney disease; N18.3 Chronic kidney disease, stage 3 (moderate); I12.9 Hypertensive chronic kidney disease with stage 1 through stage 4 chronic kidney disease, or unspecified chronic kidney disease; E11.42 Type 2 diabetes mellitus with diabetic polyneuropathy; F41.1 Generalized anxiety disorder; E03.9 Hypothyroidism, unspecified; E55.9 Vitamin D deficiency, unspecified; E66.01 Morbid (severe) obesity due to excess calories; R26.2 Difficulty in walking, not elsewhere classified; Z88.8 Allergy status to other drugs, medicaments and biological substances; Z68.30 Body mass index [BMI] 30.0-30.9, adult

== ENCOUNTER 2019-05-15 18:33 | Inpatient (IN) | payer MEDICARE ==
[~2019-05-15] VITALS: Ht 167.6 cm; Wt 91.7 kg
[~2019-05-15 18:33] MED LIST changes: +LANTUS SOL100 UNIT/1 SC; +PAROXETINE40 MG PO; +RANITIDINE HCL150 M1 PO; +SINEMET 25-2501 EACH PO
[2019-05-15 18:41] VITALS: BP 137/44
--- NOTE | 2019-05-15 19:10 | NUR ---
REPORT FROM BIRGIT MARTÍNEZ ASSUMED CARE OF PT, TUCK POINTER HELPER AND OUTSIDE COLLECTOR AT BEDSIDE, PT RECEIVING NEBULIZER TREATMENT ORDERED
[2019-05-15 19:13] LABS: BILIRUBIN NEGATIVE (NEGATIVE); BLOOD NEGATIVE (NEGATIVE); CLARITY CLOUDY (CLEAR); COLOR YELLOW (YELLOW); GLUCOSE TRACE (NEGATIVE); KETONE TRACE (NEGATIVE); LEUKO ESTERASE NEGATIVE (NEGATIVE); NITRITE NEGATIVE (NEGATIVE); PH 6.5 (5.0-9.0); UROBILINOGEN 0.2 E.U./dl (0.2-1.0)
--- NOTE | 2019-05-15 19:17 | NUR ---
XRAY AT BEDSIDE FOR PORTABLE XRAYS ORDERED
[2019-05-15 19:35] LABS: BACTERIA 4+
--- NOTE | 2019-05-15 19:53 | NUR ---
COMPUTER CRASHED WHEN SCANNING MED. RJB WAS GIVEN BUT UNABLE TO SCAN BECAUSE MY NAME IS LOCKED INTO OTHER COMPUTER, HALF SCANNED
[2019-05-15 19:55] VITALS: BP 128/50
--- NOTE | 2019-05-15 20:01 | NUR ---
ROASTER HELPER AT BEDSIDE TO RE-EVALUATE PT
[2019-05-15 20:13] LABS: BASO # 0.2 10*3/uL (0.0-0.1); BASO % 0.9 % (0.0-1.0); EOS # 0.3 10*3/uL (0.0-0.4); EOS % 1.1 % (1.0-4.0); HEMATOCRIT 30.9 % (37.0-47.0); HEMOGLOBIN 8.5 g/dl (12.0-16.0); LYMPH # 3.2 10*3/uL (1.3-4.4); LYMPH % 13.4 % (27.0-41.0); MEAN CELL VOLUME 65.2 fl (81.0-99.0); MEAN CORPUSCULAR HGB 17.9 pg (27.0-31.0); MEAN CORPUSCULAR HGB CONC 27.5 g/dl (33.0-37.0); MEAN PLATELET VOLUME 9.1 fl (9.6-12.3); MONO # 1.4 10*3/uL (0.1-1.0); MONO % 5.7 % (3.0-9.0); NEUT # 18.6 10*3/uL (2.3-7.9); NEUT % 78.2 % (47.0-73.0); NUCLEATED RED BLOOD CELL 0.1 % (0.0-0.0); PLATELET COUNT AUTOMATED 575 10*3/uL (130-400); RED BLOOD COUNT 4.74 10*6/uL (4.10-5.10); RED CELL DISTRI WIDTH 20.4 % (0-14.5); WHITE BLOOD COUNT 23.8 10*3/uL (4.8-10.8)
[2019-05-15 20:29] LABS: ACT PARTIAL THROMBO TIME 22.8 SECONDS (20.0-32.1)
[2019-05-15 20:43] LABS: ALBUMIN 3.1 gm/dl (3.1-4.5); ALKALINE PHOSPHATASE 133 U/L (45-117); BUN 26 mg/dl (7-24); CHLORIDE 105 mmol/L (98-107); CREATININE 1.02 mg/dL (0.55-1.02); LIPASE 111 U/L (73-393); POTASSIUM 4.6 mmol/L (3.5-5.1); SGOT/AST 17 IU/L (3-35); SGPT/ALT 32 U/L (12-78); SODIUM 138 mmol/L (136-145); TOTAL PROTEIN 6.9 gm/dL (6.4-8.2)
[2019-05-15 20:48] LABS: TROPONIN I < 0.015 ng/ml (<0.045)
--- NOTE | 2019-05-15 21:00 | NUR ---
lactic acid result received from lab, 2.9 BEHAVIORAL INTERVENTIONIST made aware
--- NOTE | 2019-05-15 21:08 | NUR ---
PT PLACED ON 2 L/NC DUE TO O2 SAT DECREASING TO 89% WHILE RESTING, PT DENIES ANY COMPLAINTS, NO DISTRESS NOTED, AWAITING DISPOSITION
[2019-05-15 21:14] VITALS: BP 132/56
--- NOTE | 2019-05-15 21:25 | NUR ---
REPEAT CXR COMPLETE ORDERED
--- NOTE | 2019-05-15 22:35 | NUR ---
pt resting quietly, with no complaints, awaiting room assignment for admission, call delgado in reach
[2019-05-15 22:41] VITALS: BP 122/56
--- NOTE | 2019-05-15 23:04 | NUR ---
WAITING FOR FLOOR NURSE TO COM OUT OF SHIFT REPORT OR PT TRANSPORT TO FLOOR
--- NOTE | 2019-05-15 23:35 | NUR ---
CALLED TO 4 EAST TO SEE IF RN ID READY FOR PT, RN STATES THAT SHE WILL CALL BACK WHEN READY FOR PT TRANSPORT TO FLOOR
[2019-05-15 23:45] VITALS: BP 126/50
[2019-05-15 23:55] VITALS: BP 141/48
--- NOTE | 2019-05-15 23:55 | NUR ---
A 69, admitted to , under the services of EMMA Del Angel MD with a diagnosis of UTI, SEPSIS, PNEUMONITIS. Chief complaint is AMS. Patient arrived via bed from ER. Monitor applied. Initial assessment completed. Vital signs taken and recorded. EMMA DEL ANGEL MD notified of admission to the unit. Orders received. See assessment for past medical history, medications and allergies. Patient and/or family oriented to unit. Clothing/patient valuable form completed. SMITH PINK
--- NOTE | 2019-05-15 23:55 | NUR ---
PT ADMITTED TO [facility] WITH RN ON COMPLEMENT[facility] HEALTH THERAPISTS, SR, NORMAL SALINE INFUSING WITH NO REDNESS OR SWELLING NOTED, RESP EASY ON 2L/NC, BELONGINGS WITH ROOM MATE
--- NOTE | 2019-05-16 00:37 | NUR ---
CALLED AND INFORMED OG ADMISSION, UNABLE TO REVIEW HOME MEDS. ORDER PLACED PER WISHES, NS @60CC/HR ONTINUOUS, REGULAR DIET AND 1GRAM ROCEPHIN QD. STATED SHE WILL PLACE OTHER ORDERS TOMORROW
--- NOTE | 2019-05-16 07:30 | NUR ---
ARRIVED ON SHIFT, INTRODUCED TO PATIENT, BEDSIDE REPORT RECEIVED, NO NEEDS VOICED AT THIS TIME. WHITE BOARD UPDATED.
--- NOTE | 2019-05-16 07:54 | NUR ---
Shift chart check completed.
[2019-05-16 08:00] VITALS: BP 144/85
--- NOTE | 2019-05-16 09:30 | NUR ---
Plate Worker Helper in to talk to patient. Patient states lives at home with her POA/friend Betty Montemayor. There are 6-8 steps in the home. Physician: Dr. Ricardo Coreas Pharmacy: [facility] health services: she would like [facility] services on discharge Patient's level of ADLs: MODERATE ASSIST Patient has working utilities: yes DME: walker, wheelchair Follow-up physician's appointment after d/c: she prefers to make her own follow up appt after discharge Does patient want to access PORTAL?: no Discharge plan discussed with patient. She lives at home with her POA/friend Betty Montemayor. She needs moderate assistance with her ADLs and ambulates with a walker or gets around in a wheelchair. Discussed short term SNF and she refuses. Discussed home health care services and she would like [facility] as she has had them in the past. When medically stable she will be discharged to home with the [facility] services. BIRGIT BILLINGSLEY
[2019-05-16 12:00] VITALS: BP 151/56
[2019-05-16 16:00] VITALS: BP 154/57
--- NOTE | 2019-05-16 16:00 | NUR ---
PATIENT RESTING COMFORTABLY, FAMILY AT BEDSIDE, QUESTIONS & CONCERNS ANSWERED. PATIENT VOICED NO COMPLAINTS. NO DISTRESS NOTED. CALL LIGHT WITHIN REACH.
[2019-05-16 20:00] VITALS: BP 114/38
[2019-05-17 00:09] VITALS: BP 156/50
--- NOTE | 2019-05-17 01:52 | NUR ---
24 HR chart check completed.
[2019-05-17 06:26] LABS: BASO # 0.2 10*3/uL (0.0-0.1); EOS # 0.3 10*3/uL (0.0-0.4); EOS % 2.1 % (1.0-4.0); HEMATOCRIT 27.2 % (37.0-47.0); HEMOGLOBIN 7.3 g/dl (12.0-16.0); LYMPH # 2.4 10*3/uL (1.3-4.4); LYMPH % 15.9 % (27.0-41.0); MEAN CELL VOLUME 64.8 fl (81.0-99.0); MEAN CORPUSCULAR HGB 17.4 pg (27.0-31.0); MEAN CORPUSCULAR HGB CONC 26.8 g/dl (33.0-37.0); MEAN PLATELET VOLUME 9.2 fl (9.6-12.3); MONO # 1.2 10*3/uL (0.1-1.0); NEUT # 10.9 10*3/uL (2.3-7.9); NEUT % 72.5 % (47.0-73.0); PLATELET COUNT AUTOMATED 487 10*3/uL (130-400); RED CELL DISTRI WIDTH 20.1 % (0-14.5); WHITE BLOOD COUNT 15.1 10*3/uL (4.8-10.8)
[2019-05-17 06:54] LABS: CHLORIDE 109 mmol/L (98-107); CREATININE 0.92 mg/dL (0.55-1.02); POTASSIUM 4.1 mmol/L (3.5-5.1); SODIUM 139 mmol/L (136-145)
[2019-05-17 06:57] LABS: BUN 13 mg/dl (7-24)
[2019-05-17 08:00] VITALS: BP 145/63
--- NOTE | 2019-05-17 08:00 | NUR ---
IN TO SEE PT.
--- NOTE | 2019-05-17 10:00 | NUR ---
Environmental Protection Officer in to see patient. No new needs or request at this time. When medically stable she will be discharged to home with [facility] services. Per multidisciplinary discharge planning meeting patient's WBC is trending down, lactic acid has normalized, UC -, BC pending, she is received Merrem IV.
[2019-05-17 12:00] VITALS: BP 142/60
--- NOTE | 2019-05-17 13:22 | NUR ---
CALLED BACK FOR ADMISSION ORDERS. SEE MAR AND CONSULT ORDER.
[2019-05-17 16:00] VITALS: BP 156/56
--- NOTE | 2019-05-17 18:26 | NUR ---
Spoke with Dr. Vasquez regarding patients blood sugar. Home medications were reviewed. See new orders.
[2019-05-17 20:00] VITALS: BP 137/51
--- NOTE | 2019-05-17 20:41 | NUR ---
24 HR chart check completed.
--- NOTE | 2019-05-17 21:00 | NUR ---
RESTING WITH EYES CLOSED. NO DISTRESS NOTED. RESPIRATIONS EASY. LUNGS DIMINISHED. PULSE OX 93% RA. NON-PROD COUGH NOTED. ABD SOFT WITH NORMO BOWEL SOUNDS AND COLOSTOMY PATENT. GORDON DRAINING KARLI URINE. TRACE BLE EDEMA. CALL LIGHT WITHIN REACH. NO VOICED COMPLAINTS. BED ALARM MAINTAINED FOR SAFETY
[2019-05-18] VITALS: BP 138/56
--- NOTE | 2019-05-18 | NUR ---
SLEEPING. PULSE OX 88-90% RA. RESP PRESENT ON FLOOR AND PATIENT PLACED ON 2L. PULSE OX 96% 2L. CALL LIGHT WITHIN REACH. WILL MONITOR
--- NOTE | 2019-05-18 03:00 | NUR ---
SLEEPING. O2 IN USE AT 2L.
--- NOTE | 2019-05-18 06:00 | NUR ---
SLEPT THROUGHOUT NIGHT WITH NO DISTRESS NOTED. RESPIRATIONS EASY. O2 IN USE. CALL LIGHT WITHIN REACH. NO VOICED COMPLAINTS THIS SHIFT. BED ALARM MAINTAINED FOR SAFETY
--- NOTE | 2019-05-18 06:15 | NUR ---
BSG 212. GLUCOPHAGE ADMINISTERED, INSULIN NOT YET GIVEN
[2019-05-18 06:30] LABS: HEMATOCRIT 27.6 % (37.0-47.0); HEMOGLOBIN 7.5 g/dl (12.0-16.0); MEAN CELL VOLUME 65.1 fl (81.0-99.0); MEAN CORPUSCULAR HGB 17.7 pg (27.0-31.0); MEAN CORPUSCULAR HGB CONC 27.2 g/dl (33.0-37.0); MEAN PLATELET VOLUME 9.1 fl (9.6-12.3); PLATELET COUNT AUTOMATED 505 10*3/uL (130-400); RED BLOOD COUNT 4.24 10*6/uL (4.10-5.10); RED CELL DISTRI WIDTH 19.9 % (0-14.5); WHITE BLOOD COUNT 20.6 10*3/uL (4.8-10.8)
[2019-05-18 06:39] LABS: BUN 13 mg/dl (7-24); CHLORIDE 106 mmol/L (98-107); CREATININE 0.81 mg/dL (0.55-1.02); POTASSIUM 3.9 mmol/L (3.5-5.1); SODIUM 139 mmol/L (136-145)
[2019-05-18 06:51] LABS: BASOPHILS 2 % (0-1); TOTAL CELLS COUNTED 100 #CELLS
[2019-05-18 06:52] LABS: MICROCYTOSIS MODERATE; OVALOCYTES FEW; PLATELET SUFFICIENCY HIGH (NORMAL); POLYCHROMASIA SLIGHT; SCHISTOCYTES FEW
[2019-05-18 06:53] LABS: TOXIC GRANULATION SLIGHT
[2019-05-18 08:00] VITALS: BP 172/56
--- NOTE | 2019-05-18 08:03 | NUR ---
Faxed new home health order to [facility]
--- NOTE | 2019-05-18 09:00 | NUR ---
Diamond Sorter in to see patient. No new needs or request at this time. When medically stable she will be discharged to home with [facility] services. Per multidisciplinary discharge planning meeting patient's WBC trended down but has gone back up. Dr. Dahl consulted.
--- NOTE | 2019-05-18 09:27 | NUR ---
AWARE OF CONSULT.
--- NOTE | 2019-05-18 11:50 | NUR ---
GORDON CATH REMOVED. PT TOLERATED WELL. 600CC IN CATH BAG AT TIME OF D/C. SEE I&O. WILL MONITOR VOIDING PER ORDERS.
[2019-05-18 12:00] VITALS: BP 149/50
--- NOTE | 2019-05-18 13:53 | NUR ---
Nutritional Support Services Note: Pt is eating 100% of meals. Regular diet as odered. Pt is well taken care of at home. Ht.5'6 Wt.202#. No problems noted or other nutrition intervention needed at this time. Will follow. Encourage fluids. Alesia Sainz Rdn Ld
[2019-05-18 16:00] VITALS: BP 146/52
[2019-05-18 19:11] LABS: ABG BASE EXCESS 0.6 mmol/L (-2.0-2.0); ABG HCO3 23.9 mmol/l (22-26); ABG O2 SATURATION 88.1 % (95-97); ARTERIAL BLOOD GAS PCO2 34.1 mmHg (35-45); ARTERIAL BLOOD GAS PH 7.459 (7.35-7.45); ARTERIAL BLOOD GAS PO2 51.3 mmHg (80-90)
[2019-05-18 20:00] VITALS: BP 150/60
[2019-05-19] VITALS: BP 156/56
--- NOTE | 2019-05-19 07:30 | NUR ---
Patient resting quietly with no c/o discomfort. Respirations easy and regular. Vital signs stable. No overt distress. HUYEN YARBROUGH
[2019-05-19 08:00] VITALS: BP 171/72
--- NOTE | 2019-05-19 08:50 | NUR ---
24 HR chart check completed.
[2019-05-19 12:00] VITALS: BP 168/67
[2019-05-19 16:00] VITALS: BP 164/68
[2019-05-19 20:00] VITALS: BP 136/47
--- NOTE | 2019-05-19 23:40 | NUR ---
PATIENT'S IV SITE IN LEFT HAND PAINFUL. DISCONTINUED AND RESTARTED IN LEFT UPPER ARM WITH 22 GAUGE HEP LOCK.
[2019-05-20] VITALS: BP 112/48
[2019-05-20 08:00] VITALS: BP 141/56
[2019-05-20 12:00] VITALS: BP 123/49
[2019-05-20 16:00] VITALS: BP 124/41
[2019-05-20 20:00] VITALS: BP 125/44
--- NOTE | 2019-05-20 22:00 | NUR ---
Patient resting quietly with no c/o discomfort. Respirations easy and regular. Vital signs stable. No overt distress. BED ALARM MAINTAINE, PATIENT IS CLEAN AT THSI TIME, BRIEF D/C/I, PATIENT REPOSTIIONED. BED ALARM MAINTAINED, CALL LIGHT WITHIN REACH. SMITH PINK
[2019-05-21] VITALS: BP 130/47
--- NOTE | 2019-05-21 00:25 | NUR ---
24 HR chart check completed.
--- NOTE | 2019-05-21 01:00 | NUR ---
PATIENT HAD INCONT EPISODE, PATIENT CHANGED AND REPOSITIONED IN BED. BED ALARM MAINTAINED. CALL LIGHT WITHIN REACH.
--- NOTE | 2019-05-21 03:42 | NUR ---
SLEEPING, RESP ARE ERND NO DISTRESS NOTED. BED ALARM MAINTAINED. CALL LIGHT WITHIN REACH
[2019-05-21 06:09] LABS: BASO # 0.1 10*3/uL (0.0-0.1); BASO % 0.9 % (0.0-1.0); EOS # 0.5 10*3/uL (0.0-0.4); EOS % 3.4 % (1.0-4.0); HEMATOCRIT 27.3 % (37.0-47.0); HEMOGLOBIN 7.3 g/dl (12.0-16.0); LYMPH # 2.5 10*3/uL (1.3-4.4); LYMPH % 15.6 % (27.0-41.0); MEAN CELL VOLUME 67.7 fl (81.0-99.0); MEAN CORPUSCULAR HGB 18.1 pg (27.0-31.0); MEAN CORPUSCULAR HGB CONC 26.7 g/dl (33.0-37.0); MEAN PLATELET VOLUME 9.2 fl (9.6-12.3); MONO # 1.1 10*3/uL (0.1-1.0); NEUT # 11.2 10*3/uL (2.3-7.9); NEUT % 71.6 % (47.0-73.0); NUCLEATED RED BLOOD CELL 0.1 10*3/uL (0.0-0.0); NUCLEATED RED BLOOD CELL 0.3 % (0.0-0.0); PLATELET COUNT AUTOMATED 485 10*3/uL (130-400); RED BLOOD COUNT 4.03 10*6/uL (4.10-5.10); RED CELL DISTRI WIDTH 21.2 % (0-14.5); WHITE BLOOD COUNT 15.7 10*3/uL (4.8-10.8)
[2019-05-21 06:24] LABS: ALBUMIN 2.4 gm/dl (3.1-4.5); ALKALINE PHOSPHATASE 85 U/L (45-117); BUN 11 mg/dl (7-24); CHLORIDE 107 mmol/L (98-107); CREATININE 0.74 mg/dL (0.55-1.02); SGOT/AST 9 IU/L (3-35); SGPT/ALT 10 U/L (12-78); SODIUM 140 mmol/L (136-145); TOTAL PROTEIN 6.3 gm/dL (6.4-8.2)
[2019-05-21 08:00] VITALS: BP 156/54
--- NOTE | 2019-05-21 09:26 | NUR ---
Student Recruiter in to see patient. Discussed short term SNF vs HH. NICOLASA Hernández is at the bedside. The patient normally gets into a wheelchair with guidance from the POA. She does have [employer] services at home and will resume those services upon discharge. If patient is able to stand and pivot the patient and POA would like the patient to go home. If patient would require SNF then she would like to go to [facility]. site planner notified. Waiting on therapy recommendations.
[2019-05-21 10:48] LABS: ABG BASE EXCESS -0.6 mmol/L (-2.0-2.0); ABG HCO3 23.9 mmol/l (22-26); ABG O2 SATURATION 90.3 % (95-97); ARTERIAL BLOOD GAS PCO2 40.6 mmHg (35-45); ARTERIAL BLOOD GAS PH 7.386 (7.35-7.45); ARTERIAL BLOOD GAS PO2 54.9 mmHg (80-90)
--- NOTE | 2019-05-21 10:55 | NUR ---
DR TRINH NOTIFIED OF ABG RESULTS, HE STATED TO CALL HIM BACK WITH CXR RESULTS
[2019-05-21 12:00] VITALS: BP 153/56
--- NOTE | 2019-05-21 14:24 | NUR ---
Patient changed her mind and no longer wants [facility]. She wants her referral faxed to [facility]> Contacted facility and faxed referral. waiting on review/acceptance. requires 3 night stay
--- NOTE | 2019-05-21 15:33 | NUR ---
Discussed with patient and POA who is at the bedside regarding referral being sent over to [facility]. Both are agreeable.
[2019-05-21 16:00] VITALS: BP 138/53
[2019-05-21 20:00] VITALS: BP 153/55
--- NOTE | 2019-05-21 20:00 | NUR ---
Patient resting quietly with no c/o discomfort. Respirations easy and regular. Vital signs stable. No overt distress. WILL CONTINUE TO MONITOR PATIENT. CALL LIGHT WITHIN REACH AND BED IN LOWEST POSITION. BENEDICTO CHAVEZ
[2019-05-22] VITALS: BP 132/56
--- NOTE | 2019-05-22 01:17 | NUR ---
24 HR chart check completed.
--- NOTE | 2019-05-22 04:33 | NUR ---
SLEEPING, EYES CLOSED. NO DISTRESS NOTED, RESP ARE ERND ON 5L NC. CALL LIGHT WITHIN REACH
[2019-05-22 06:10] LABS: BASO # 0.1 10*3/uL (0.0-0.1); BASO % 0.9 % (0.0-1.0); EOS # 0.6 10*3/uL (0.0-0.4); EOS % 3.9 % (1.0-4.0); HEMATOCRIT 28.1 % (37.0-47.0); HEMOGLOBIN 7.6 g/dl (12.0-16.0); LYMPH % 20.1 % (27.0-41.0); MEAN CORPUSCULAR HGB 18.4 pg (27.0-31.0); MONO # 1.1 10*3/uL (0.1-1.0); MONO % 7.1 % (3.0-9.0); NEUT # 9.8 10*3/uL (2.3-7.9); NEUT % 66.2 % (47.0-73.0); NUCLEATED RED BLOOD CELL 0.1 10*3/uL (0.0-0.0); NUCLEATED RED BLOOD CELL 0.3 % (0.0-0.0); PLATELET COUNT AUTOMATED 505 10*3/uL (130-400); RED BLOOD COUNT 4.13 10*6/uL (4.10-5.10); RED CELL DISTRI WIDTH 22.4 % (0-14.5); WHITE BLOOD COUNT 14.8 10*3/uL (4.8-10.8)
[2019-05-22 06:27] LABS: ALBUMIN 2.5 gm/dl (3.1-4.5); ALKALINE PHOSPHATASE 85 U/L (45-117); BUN 9 mg/dl (7-24); CHLORIDE 105 mmol/L (98-107); CREATININE 0.65 mg/dL (0.55-1.02); POTASSIUM 3.8 mmol/L (3.5-5.1); SGOT/AST 14 IU/L (3-35); SGPT/ALT 10 U/L (12-78); SODIUM 139 mmol/L (136-145); TOTAL PROTEIN 6.3 gm/dL (6.4-8.2)
[2019-05-22 08:00] VITALS: BP 154/50
--- NOTE | 2019-05-22 08:30 | NUR ---
Occupational Therapy evaluation completed on 4 with full eval to follow. Precautions include fall risk;bed alarm, impaired balance, safety and activity tolerance for ADLs,moderate complexity level 72029 via chart review, testing and evaluation. Recommend OT per pOC and SNF to enable safe return home at prior level of independence. THank you. Lydia Lu OTR/l
--- NOTE | 2019-05-22 08:55 | NUR ---
PHYSICAL THERAPY Chart reviewed attemepted to see pt for evaluation unavailalbe at this time eating brekfast recieving meds will follow later in the AM thank you Tracey Sanchez PT
--- NOTE | 2019-05-22 10:53 | NUR ---
Patient referred to [facility], however she refused to work with therapist this morning. PT and OT evals are required for precert.
--- NOTE | 2019-05-22 11:00 | NUR ---
Boat Joiner Helper in to see patient. Discussed working with therapy in order to get evals for her precert to be started for [facility]. She is agreeable and will work with therapy. Therapy and meeting planner notified. Waiting for acceptance to [facility] and precert.
[2019-05-22 12:00] VITALS: BP 162/86
--- NOTE | 2019-05-22 12:20 | NUR ---
PHYSICAL THERAPY Eval completed see note for full details. Pt is moderated level of complexity 25537. PT to work on transfers, standing tolerance short distance amb, and strengthening. Recommend SNF at discharge, thank you. Tracey Sanchez PT
[2019-05-22 16:00] VITALS: BP 130/48
[2019-05-22 20:00] VITALS: BP 147/50
[2019-05-23] VITALS: BP 91/69
--- NOTE | 2019-05-23 01:31 | NUR ---
24 HR chart check completed.
[2019-05-23 06:25] LABS: BASO # 0.1 10*3/uL (0.0-0.1); EOS # 0.5 10*3/uL (0.0-0.4); EOS % 3.3 % (1.0-4.0); HEMATOCRIT 27.2 % (37.0-47.0); HEMOGLOBIN 7.2 g/dl (12.0-16.0); LYMPH # 2.9 10*3/uL (1.3-4.4); LYMPH % 19.8 % (27.0-41.0); MEAN CELL VOLUME 69.2 fl (81.0-99.0); MEAN CORPUSCULAR HGB 18.3 pg (27.0-31.0); MEAN CORPUSCULAR HGB CONC 26.5 g/dl (33.0-37.0); MEAN PLATELET VOLUME 9.6 fl (9.6-12.3); MONO # 1.1 10*3/uL (0.1-1.0); MONO % 7.4 % (3.0-9.0); NEUT # 9.6 10*3/uL (2.3-7.9); NEUT % 66.6 % (47.0-73.0); NUCLEATED RED BLOOD CELL 0.2 % (0.0-0.0); PLATELET COUNT AUTOMATED 476 10*3/uL (130-400); RED BLOOD COUNT 3.93 10*6/uL (4.10-5.10); RED CELL DISTRI WIDTH 23.5 % (0-14.5); WHITE BLOOD COUNT 14.4 10*3/uL (4.8-10.8)
[2019-05-23 06:56] LABS: ALBUMIN 2.3 gm/dl (3.1-4.5); ALKALINE PHOSPHATASE 79 U/L (45-117); BUN 9 mg/dl (7-24); CHLORIDE 106 mmol/L (98-107); CREATININE 0.62 mg/dL (0.55-1.02); POTASSIUM 3.9 mmol/L (3.5-5.1); SGOT/AST 9 IU/L (3-35); SGPT/ALT 11 U/L (12-78); SODIUM 141 mmol/L (136-145)
[2019-05-23 08:00] VITALS: BP 156/60
--- NOTE | 2019-05-23 08:15 | NUR ---
IN TO SEE PATIENT.
--- NOTE | 2019-05-23 08:15 | NUR ---
PHYSICAL THERAPY Patient seen this am 1;1 for therapy visit and was supine in bed upon therapist arrival. Patient identified by name / and presented with continuous O2-4L via NC. Patient reports increased chest congestion with unproductive cough, while transfering supine to sit EOB with MOD/MAX A. Patient tolerated several minutes static EOB sit with v/c to improve "slouched" seated posture. Patient completed several sit to stand transfers with use of wh walker standing support, CGA, tolerating approx 50 seconds first trial, then 30 seconds on second trial. Patient also completed SPT to bedside chair, wh walker, MIN A, demonstrating POOR transfer technique, v/c for proper hand placement prior to sitting down. Patient fatigues quickly and remained in bedside chair with call light, tray table, telephone and body alarm for safety. Will continue per POC as tolerated, total treatment time 16 minutes. JuanD iego Mohan, FINANCIAL PLANNING ASSISTANT
--- NOTE | 2019-05-23 08:24 | NUR ---
OT NOTE Pt was seen this A.M. 1:1 for 24 minute OT session. Upon arrival pt was supine in bed. Pt identified by name and and had no complaints at this time. Pt presented to therapy with continuous 4L-O2 via NC which she remained on throughout the entire session. Pt transferred supine to sit EOB with modA for assist with UB. While sitting EOB challenged pt's dynamic sitting balance needed for increased I in self care tasks and functional transfers. While weight shifting, crossing midline, and reaching over all planes pt was able to maintain F- sitting balance requiring Jigna/UE support to maintain. Pt then completed multiple sit to stand transfers from bed level with modA and use of w/w. Challenged pt's static standing tolerance needed for increased I in self care tasks and functional transfers, pt was able to tolerate aprox 50 sec, 26 sec, and 30 seconds before sitting due to fatigue. Pt then completed standing pivot from the EOB to the recliner with modA and use of w/w. There she was left with call light in hand, tray table in place, and body alarm activated for safety. Continue with rec D/C plan to SNF. CIRILO Solis/Luis
--- NOTE | 2019-05-23 08:24 | NUR ---
IN TO SEE PATIENT.
--- NOTE | 2019-05-23 08:33 | NUR ---
IN TO SEE PATIENT AND UPDATED ON PLAN OF CARE.
[2019-05-23] MEDS ORDERED: VANCO 1.251.25 GM/25 IV (08:45)
--- NOTE | 2019-05-23 08:56 | NUR ---
PRECERT is required for the patient to go to [facility]. -MARLEN Portillo
--- NOTE | 2019-05-23 09:00 | NUR ---
Dietary Internship in to see patient. She is siting up in her bedside chair without distress noted eating breakfast. No new needs or request at this time. Discussed her discharge to [facility] today and she remains agreeable. railway track worker following.
--- NOTE | 2019-05-23 09:06 | NUR ---
PRECERT has been obtained for patient to go to [facility]. -MARLEN Portillo
--- NOTE | 2019-05-23 09:20 | NUR ---
MANAGER RECRUITMENT notified of patient discharge. MANAGER RECRUITMENT spoke with patients NICOLASA Hernández. Betty stated that she would be able to transport the patient today at 12pm to [facility]. MANAGER RECRUITMENT notified Work Telegraph[employer] Typewriter Mechanic and [facility]. Will fax discharge orders to [facility] when able.-MARLEN Portillo
--- NOTE | 2019-05-23 11:52 | NUR ---
JOSE LEY (POA) HERE TO TRANSPORT PATIENT TO [facility] PER ORDER. PATIENT REQUIRES 02 AT THIS TIME. 02 TANK FORM FILLED OUT FOR POA TO TAKE OXYGEN TO TRANSPORT PATIENT.
--- NOTE | 2019-05-23 11:54 | NUR ---
DISCHARGE PACKET WITH POA.
--- NOTE | 2019-05-23 12:00 | NUR ---
Discharge instructions reviewed with patient/family. Patient receptive and verbalizes understanding. Follow-up care arranged. Written instructions given to patient/family. NATALIA VALLES.
--- NOTE | 2019-05-23 12:03 | NUR ---
REPORT GIVEN TO NURSE AT [facility].
--- NOTE | 2019-05-23 12:38 | NUR ---
ETL TESTER notified of patient discharge. ETL TESTER spoke with patients NICOLASA Hernández. Betty stated that she would be able to transport the patient today at 12pm to [facility]. ETL TESTER notified Work Greeter Guest Services and [facility]. Will fax discharge orders to [facility] when able.-MARLEN Portillo
--- NOTE | 2019-05-24 08:16 | NUR ---
PHYSICAL THERAPY CO-SIGN I approve of the Physical Therapy notes written above. Tracey Sanchez PT
--- NOTE | 2019-05-24 09:09 | NUR ---
OCCUPATIONAL THERAPY CO-SIGN I approve of the Occupational Therapy notes written above. MALGORZATA HERRING OTR/Luis
== END 2019-05-23 12:00 | disposition other institution (70) | DRG 193 ==
LOC: ED 18:33 → EDHOLD 22:48 → 4E 22:48
PROVIDERS: Internal Medicine Critical Care Medicine; Nurse Practitioner Family; ADMIT Internal Medicine
PROC: 02HV33Z Insertion of Infusion Device into Superior Vena Cava, Percutaneous Approach (ICD-10-PCS; principal; 2019-05-22)
DX: J18.9 Pneumonia, unspecified organism (principal); J96.01 Acute respiratory failure with hypoxia; G93.41 Metabolic encephalopathy; N39.0 Urinary tract infection, site not specified; E46 Unspecified protein-calorie malnutrition; J44.0 Chronic obstructive pulmonary disease with (acute) lower respiratory infection; F33.0 Major depressive disorder, recurrent, mild; I12.9 Hypertensive chronic kidney disease with stage 1 through stage 4 chronic kidney disease, or unspecified chronic kidney disease; J20.9 Acute bronchitis, unspecified; N18.3 Chronic kidney disease, stage 3 (moderate); B95.4 Other streptococcus as the cause of diseases classified elsewhere; D50.9 Iron deficiency anemia, unspecified; E66.9 Obesity, unspecified; R62.7 Adult failure to thrive; E11.22 Type 2 diabetes mellitus with diabetic chronic kidney disease; E78.2 Mixed hyperlipidemia; G30.1 Alzheimer's disease with late onset; F02.80 Dementia in other diseases classified elsewhere, unspecified severity, without behavioral disturbance, psychotic disturbance, mood disturbance, and anxiety; F41.1 Generalized anxiety disorder; E11.42 Type 2 diabetes mellitus with diabetic polyneuropathy; E89.0 Postprocedural hypothyroidism; G89.29 Other chronic pain; Z91.81 History of falling; Z88.8 Allergy status to other drugs, medicaments and biological substances; Z87.01 Personal history of pneumonia (recurrent); Z88.1 Allergy status to other antibiotic agents; Z90.710 Acquired absence of both cervix and uterus; Z90.49 Acquired absence of other specified parts of digestive tract; Z83.3 Family history of diabetes mellitus; Z82.3 Family history of stroke; Z82.0 Family history of epilepsy and other diseases of the nervous system; Z80.8 Family history of malignant neoplasm of other organs or systems; Z87.440 Personal history of urinary (tract) infections; Z93.3 Colostomy status; Z88.0 Allergy status to penicillin; Z68.32 Body mass index [BMI] 32.0-32.9, adult

== ENCOUNTER 2019-06-17 17:30 | Emergency (ER) | payer MEDICARE ==
--- NOTE | ~2019-06-17 | EKG ---
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
[~2019-06-17 17:30] MED LIST changes: +VANCO 1.251.25 GM/25 IV
[2019-06-17 18:13] LABS: BASO # 0.1 10*3/uL (0.0-0.1); EOS # 0.3 10*3/uL (0.0-0.4); EOS % 2.5 % (1.0-4.0); HEMATOCRIT 34.1 % (37.0-47.0); HEMOGLOBIN 9.8 g/dl (12.0-16.0); LYMPH # 2.5 10*3/uL (1.3-4.4); LYMPH % 19.5 % (27.0-41.0); MEAN CELL VOLUME 69.7 fl (81.0-99.0); MEAN CORPUSCULAR HGB CONC 28.7 g/dl (33.0-37.0); MEAN PLATELET VOLUME 9.8 fl (9.6-12.3); MONO # 0.9 10*3/uL (0.1-1.0); MONO % 6.6 % (3.0-9.0); NEUT # 8.9 10*3/uL (2.3-7.9); NEUT % 69.7 % (47.0-73.0); PLATELET COUNT AUTOMATED 429 10*3/uL (130-400); RED BLOOD COUNT 4.89 10*6/uL (4.10-5.10); RED CELL DISTRI WIDTH 26.1 % (0-14.5); WHITE BLOOD COUNT 12.8 10*3/uL (4.8-10.8)
[2019-06-17 18:26] LABS: ACT PARTIAL THROMBO TIME 22.2 SECONDS (20.0-32.1)
[2019-06-17 18:28] LABS: ALBUMIN 3.1 gm/dl (3.1-4.5); CREATININE 1.17 mg/dL (0.55-1.02); POTASSIUM 3.9 mmol/L (3.5-5.1); TOTAL PROTEIN 6.9 gm/dL (6.4-8.2)
[2019-06-17 20:20] VITALS: BP 140/60
== END 2019-06-17 20:21 | disposition short-term general hospital (02) ==
LOC: ED 17:30
PROVIDERS: Emergency Medicine
DX: R56.9 Unspecified convulsions (principal); R47.81 Slurred speech; R45.1 Restlessness and agitation; R53.1 Weakness; R79.1 Abnormal coagulation profile; Z88.1 Allergy status to other antibiotic agents; Z88.6 Allergy status to analgesic agent; Z86.718 Personal history of other venous thrombosis and embolism; Z79.899 Other long term (current) drug therapy; Z79.4 Long term (current) use of insulin

== ENCOUNTER 2019-07-08 17:33 | Emergency (ER) | payer MEDICARE, MEDICAID ==
[~2019-07-08] VITALS: Ht 167.6 cm; Wt 90.7 kg
[2019-07-08 17:36] VITALS: BP 142/55
[2019-07-08 17:53] LABS: BASO # 0.1 10*3/uL (0.0-0.1); BASO % 1.3 % (0.0-1.0); EOS # 0.3 10*3/uL (0.0-0.4); EOS % 3.2 % (1.0-4.0); HEMATOCRIT 33.3 % (37.0-47.0); HEMOGLOBIN 9.6 g/dl (12.0-16.0); LYMPH # 2.6 10*3/uL (1.3-4.4); LYMPH % 25.4 % (27.0-41.0); MEAN CELL VOLUME 70.9 fl (81.0-99.0); MEAN CORPUSCULAR HGB 20.4 pg (27.0-31.0); MEAN CORPUSCULAR HGB CONC 28.8 g/dl (33.0-37.0); MEAN PLATELET VOLUME 9.6 fl (9.6-12.3); MONO # 0.7 10*3/uL (0.1-1.0); NEUT # 6.5 10*3/uL (2.3-7.9); NEUT % 62.7 % (47.0-73.0); PLATELET COUNT AUTOMATED 448 10*3/uL (130-400); RED CELL DISTRI WIDTH 24.7 % (0-14.5); WHITE BLOOD COUNT 10.4 10*3/uL (4.8-10.8)
[2019-07-08 18:14] LABS: BILIRUBIN NEGATIVE (NEGATIVE); BLOOD NEGATIVE (NEGATIVE); CLARITY CLEAR (CLEAR); COLOR YELLOW (YELLOW); GLUCOSE 2+ (NEGATIVE); KETONE TRACE (NEGATIVE); LEUKO ESTERASE NEGATIVE (NEGATIVE); NITRITE NEGATIVE (NEGATIVE); SPECIFIC GRAVITY 1.025 (1.005-1.030); UROBILINOGEN 0.2 E.U./dl (0.2-1.0)
[2019-07-08 18:22] LABS: BACTERIA 3+
[2019-07-08 18:22] LABS: ALBUMIN 3.5 gm/dl (3.1-4.5); CREATININE 1.28 mg/dL (0.55-1.02); POTASSIUM 4.2 mmol/L (3.5-5.1); TOTAL PROTEIN 7.4 gm/dL (6.4-8.2)
[2019-07-08] MEDS ORDERED: AMINOPHYLLIN200 MG PO (18:54)
== END 2019-07-08 19:04 | disposition home or self-care (01) ==
LOC: ED 17:33
PROVIDERS: Nurse Practitioner Family
DX: N39.0 Urinary tract infection, site not specified (principal); E11.65 Type 2 diabetes mellitus with hyperglycemia; I10 Essential (primary) hypertension; E78.00 Pure hypercholesterolemia, unspecified; J44.9 Chronic obstructive pulmonary disease, unspecified; Z88.1 Allergy status to other antibiotic agents; Z88.6 Allergy status to analgesic agent; Z79.899 Other long term (current) drug therapy; Z79.4 Long term (current) use of insulin; Z86.718 Personal history of other venous thrombosis and embolism

== ENCOUNTER 2019-09-28 16:12 | Emergency (ER) | payer MEDICARE, MEDICAID ==
[~2019-09-28] VITALS: Ht 167.6 cm; Wt 90.7 kg
[~2019-09-28 16:12] MED LIST changes: +AMINOPHYLLIN200 MG PO
[2019-09-28 16:14] VITALS: BP 156/60
[2019-09-28 16:40] LABS: BASO # 0.1 10*3/uL (0.0-0.1); BASO % 1.1 % (0.0-1.0); EOS # 0.3 10*3/uL (0.0-0.4); EOS % 2.3 % (1.0-4.0); HEMATOCRIT 28.9 % (37.0-47.0); HEMOGLOBIN 8.2 g/dl (12.0-16.0); LYMPH # 3.2 10*3/uL (1.3-4.4); MEAN CELL VOLUME 71.9 fl (81.0-99.0); MEAN CORPUSCULAR HGB 20.4 pg (27.0-31.0); MEAN CORPUSCULAR HGB CONC 28.4 g/dl (33.0-37.0); MEAN PLATELET VOLUME 9.3 fl (9.6-12.3); NEUT # 7.7 10*3/uL (2.3-7.9); NEUT % 62.3 % (47.0-73.0); PLATELET COUNT AUTOMATED 524 10*3/uL (130-400); RED BLOOD COUNT 4.02 10*6/uL (4.10-5.10); RED CELL DISTRI WIDTH 17.6 % (0-14.5); WHITE BLOOD COUNT 12.4 10*3/uL (4.8-10.8)
[2019-09-28 16:51] LABS: ACT PARTIAL THROMBO TIME 24.8 SECONDS (20.0-32.1)
[2019-09-28 17:02] LABS: ALBUMIN 3.3 gm/dl (3.1-4.5); ALKALINE PHOSPHATASE 86 U/L (45-117); BUN 19 mg/dl (7-24); CHLORIDE 106 mmol/L (98-107); CREATININE 1.15 mg/dL (0.55-1.02); LIPASE 157 U/L (73-393); POTASSIUM 4.1 mmol/L (3.5-5.1); SGOT/AST 14 IU/L (3-35); SGPT/ALT 28 U/L (12-78); SODIUM 136 mmol/L (136-145); TOTAL PROTEIN 7.3 gm/dL (6.4-8.2)
[2019-09-28 17:05] LABS: TROPONIN I < 0.015 ng/ml (<0.045)
[2019-09-28 18:26] LABS: BILIRUBIN NEGATIVE (NEGATIVE); BLOOD NEGATIVE (NEGATIVE); CLARITY CLEAR (CLEAR); COLOR YELLOW (YELLOW); GLUCOSE TRACE (NEGATIVE); KETONE NEGATIVE (NEGATIVE); LEUKO ESTERASE TRACE (NEGATIVE); NITRITE NEGATIVE (NEGATIVE); SPECIFIC GRAVITY 1.025 (1.005-1.030); UROBILINOGEN 0.2 E.U./dl (0.2-1.0)
[2019-09-28 18:28] LABS: BACTERIA 1+; EPITHELIAL CELLS 16-20; MUCOUS 1+
[2019-09-28] MEDS ORDERED: NORCO 5-325 TA1 EACH PO (18:55)
== END 2019-09-28 19:02 | disposition home or self-care (01) ==
LOC: ED 16:12
PROVIDERS: Nurse Practitioner Family
DX: R09.1 Pleurisy (principal); I10 Essential (primary) hypertension; E11.9 Type 2 diabetes mellitus without complications; J44.9 Chronic obstructive pulmonary disease, unspecified; E78.5 Hyperlipidemia, unspecified; R79.1 Abnormal coagulation profile; Z86.73 Personal history of transient ischemic attack (TIA), and cerebral infarction without residual deficits; Z88.1 Allergy status to other antibiotic agents; Z88.6 Allergy status to analgesic agent; Z79.899 Other long term (current) drug therapy; Z79.4 Long term (current) use of insulin

== ENCOUNTER → 2020-04-16 | Outpatient (CLI) | payer MEDICARE, MEDICAID ==
[~2020-04-16] MED LIST changes: +NORCO 5-325 TA1 EACH PO
== END | disposition home or self-care (01) ==
LOC: COVID19 00:49
PROVIDERS: ATTEND Nurse Practitioner Primary Care
DX: J43.8 Other emphysema (principal); J90 Pleural effusion, not elsewhere classified; J40 Bronchitis, not specified as acute or chronic; R43.2 Parageusia; R68.89 Other general symptoms and signs; Z20.828 Contact with and (suspected) exposure to other viral communicable diseases

== ENCOUNTER 2020-06-16 10:17 | Inpatient (IN) | payer MEDICARE, MEDICAID ==
[2020-06-16] VITALS (10 sets, daily range): BP systolic 101–130; BP diastolic 40–62
[~2020-06-16] VITALS: Ht 172.7 cm; Wt 90.7 kg
[2020-06-16 11:05] LABS: BASO % 0.3 % (0.0-1.0); HEMATOCRIT 37.5 % (37.0-47.0); LYMPH % 9.8 % (27.0-41.0); MEAN CELL VOLUME 77.6 fl (81.0-99.0); MEAN CORPUSCULAR HGB 22.8 pg (27.0-31.0); MEAN CORPUSCULAR HGB CONC 29.3 g/dl (33.0-37.0); MEAN PLATELET VOLUME 10.1 fl (9.6-12.3); MONO # 0.7 10*3/uL (0.1-1.0); MONO % 6.7 % (3.0-9.0); NEUT % 82.3 % (47.0-73.0); PLATELET COUNT AUTOMATED 286 10*3/uL (130-400); RED BLOOD COUNT 4.83 10*6/uL (4.10-5.10); RED CELL DISTRI WIDTH 25.8 % (0-14.5); WHITE BLOOD COUNT 9.7 10*3/uL (4.8-10.8)
[2020-06-16 11:08] LABS: ACT PARTIAL THROMBO TIME 31.6 SECONDS (20.0-32.1); INTERNATIONAL NORM RATIO 1.2 (2.0-3.5)
[2020-06-16 11:26] LABS: ALBUMIN 2.6 gm/dl (3.1-4.5); CREATININE 5.61 mg/dL (0.55-1.02); POTASSIUM 5.6 mmol/L (3.5-5.1); TOTAL PROTEIN 7.6 gm/dL (6.4-8.2)
[2020-06-16 11:27] LABS: TROPONIN I 0.025 ng/ml (<0.045)
[2020-06-16 14:40] LABS: CREATININE 5.71 mg/dL (0.55-1.02); POTASSIUM 5.3 mmol/L (3.5-5.1)
[2020-06-16 14:41] LABS: ARTERIAL BLOOD GAS PH 7.24 (7.35-7.45)
[2020-06-16 14:42] LABS: ABG BASE EXCESS -14.5 mmol/L (-2.0-2.0)
[2020-06-16 18:48] LABS: CREATININE 5.93 mg/dL (0.55-1.02); POTASSIUM 5.2 mmol/L (3.5-5.1)
[2020-06-16 18:49] LABS: BILIRUBIN Negative (Negative); BLOOD Trace-Lysed (Negative); CLARITY Turbid (Clear); COLOR Yellow (Yellow); GLUCOSE 2+ (Negative); KETONE Trace (Negative); LEUKO ESTERASE 1+ (Negative); NITRITE Negative (Negative); SPECIFIC GRAVITY 1.015 (1.001-1.030); UROBILINOGEN 0.2 E.U./dl (0.0-1.0)
[2020-06-16 18:59] LABS: WBC 21-30 wbc/hpf (0-5)
[2020-06-16 19:00] LABS: BACTERIA 3+; EPITHELIAL CELLS 16-20
[2020-06-16] MEDS ORDERED: CELECOXIB200 M1 PO (21:10)
[2020-06-16] MEDS ORDERED: FERROUS SULFAT325 MG PO (21:11)
[2020-06-16] MEDS ORDERED: QUETIAPINE FUMA25 MG PO (21:11)
[2020-06-16] MEDS ORDERED: LEVETIRACETAM500 MG PO (21:12)
[2020-06-16] MEDS ORDERED: HUMULIN R500 UNIT/1 SC ×2 (21:14→21:15)
[2020-06-16] MEDS ORDERED: LISINOPRIL10 M1 PO (21:18)
[2020-06-16] MEDS ORDERED: NORVASC5 MG PO (21:20)
[2020-06-16] MEDS ORDERED: CENTRUM SILVER1 EAC2 PO (21:21)
[2020-06-16] MEDS ORDERED: CRESTOR40 M1 PO (21:21)
[2020-06-16] MEDS ORDERED: PRESERVISION A1 EAC1 PO (21:23)
[2020-06-16] MEDS ORDERED: COLACE100 MG PO (21:24)
[2020-06-16] MEDS ORDERED: ZEGERID 40 MG1 EACH PO (21:25)
[2020-06-16] MEDS ORDERED: CLARITIN10 MG PO (21:26)
[2020-06-16 21:35] LABS: ARTERIAL BLOOD GAS PH 7.242 (7.35-7.45)
[2020-06-16 21:36] LABS: ABG BASE EXCESS -12.8 mmol/L (-2.0-2.0)
[2020-06-16] MEDS ORDERED: VITAMIN D350 MCG PO (21:39)
[2020-06-16] MEDS ORDERED: PROAIR RESPICL90 MCG INH (21:40)
[2020-06-16] MEDS ORDERED: PRESERVISION A1 EAC2 PO (21:41)
[2020-06-16 22:21] LABS: CREATININE 6.04 mg/dL (0.55-1.02); POTASSIUM 5.1 mmol/L (3.5-5.1)
[2020-06-17] VITALS (7 sets, daily range): BP systolic 100–167; BP diastolic 43–67
[2020-06-17 02:09] LABS: CREATININE 6.13 mg/dL (0.55-1.02); POTASSIUM 5.7 mmol/L (3.5-5.1)
[2020-06-17 06:07] LABS: CREATININE 6.32 mg/dL (0.55-1.02); POTASSIUM 5.3 mmol/L (3.5-5.1)
[2020-06-17 06:10] LABS: BASO % 0.1 % (0.0-1.0); HEMATOCRIT 32.4 % (37.0-47.0); LYMPH # 0.7 10*3/uL (1.3-4.4); MEAN CELL VOLUME 77.5 fl (81.0-99.0); MEAN CORPUSCULAR HGB 22.7 pg (27.0-31.0); MEAN CORPUSCULAR HGB CONC 29.3 g/dl (33.0-37.0); MONO # 0.5 10*3/uL (0.1-1.0); MONO % 4.4 % (3.0-9.0); NEUT # 10.7 10*3/uL (2.3-7.9); NEUT % 88.7 % (47.0-73.0); PLATELET COUNT AUTOMATED 276 10*3/uL (130-400); RED BLOOD COUNT 4.18 10*6/uL (4.10-5.10); RED CELL DISTRI WIDTH 25.4 % (0-14.5); WHITE BLOOD COUNT 12.1 10*3/uL (4.8-10.8)
[2020-06-17 06:17] LABS: THYROID STIM HORMONE (HS) 0.471 uIU/ml (0.358-4.75)
[2020-06-17 08:02] LABS: VITAMIN D, 25-HYDROXY 51.9 ng/mL (30-100)
[2020-06-17 08:31] LABS: ABG BASE EXCESS -13.2 mmol/L (-2.0-2.0); ARTERIAL BLOOD GAS PH 7.233 (7.35-7.45)
[2020-06-17 12:04] LABS: ALBUMIN 2.1 gm/dl (3.1-4.5); CREATININE 6.41 mg/dL (0.55-1.02); POTASSIUM 5.1 mmol/L (3.5-5.1); TOTAL PROTEIN 6.6 gm/dL (6.4-8.2)
[2020-06-18] VITALS: BP 150/56
[2020-06-18 06:35] LABS: HEMATOCRIT 38.7 % (37.0-47.0); MEAN CELL VOLUME 76.6 fl (81.0-99.0); MEAN CORPUSCULAR HGB 22.2 pg (27.0-31.0); MEAN CORPUSCULAR HGB CONC 28.9 g/dl (33.0-37.0); MEAN PLATELET VOLUME 10.2 fl (9.6-12.3); NUCLEATED RED BLOOD CELL 0.1 % (0.0-0.0); RED BLOOD COUNT 5.05 10*6/uL (4.10-5.10); RED CELL DISTRI WIDTH 26.5 % (0-14.5); WHITE BLOOD COUNT 21.6 10*3/uL (4.8-10.8)
[2020-06-18 06:46] LABS: ALBUMIN 2.3 gm/dl (3.1-4.5); CREATININE 6.06 mg/dL (0.55-1.02); PLATELET COUNT AUTOMATED 475 10*3/uL (130-400); TOTAL PROTEIN 7.1 gm/dL (6.4-8.2)
[2020-06-18 06:50] LABS: POTASSIUM 6.1 mmol/L (3.5-5.1)
[2020-06-18 08:11] LABS: PLATELET SUFFICIENCY HIGH (NORMAL); POLYCHROMASIA SLIGHT; TOTAL CELLS COUNTED 100 #CELLS
[2020-06-18 12:00] VITALS: BP 131/73
== END 2020-06-18 14:04 | disposition hospice, home (50) | DRG 871 ==
LOC: ED 10:17 → EDHOLD 12:33 → 4E 06-17 18:25
PROVIDERS: Emergency Medicine; Internal Medicine; Internal Medicine Critical Care Medicine; Internal Medicine Nephrology; Student in an Organized Health Care Education/Training Program; ADMIT Internal Medicine; ATTEND Internal Medicine
PROC: 5A09357 Assistance with Respiratory Ventilation, Less than 24 Consecutive Hours, Continuous Positive Airway Pressure (ICD-10-PCS; 2020-06-16)
PROC: 02HV33Z Insertion of Infusion Device into Superior Vena Cava, Percutaneous Approach (ICD-10-PCS; principal; 2020-06-17)
PROC: B548ZZA Ultrasonography of Superior Vena Cava, Guidance (ICD-10-PCS; 2020-06-17)
PROC: XW033E5 Introduction of Remdesivir Anti-infective into Peripheral Vein, Percutaneous Approach, New Technology Group 5 (ICD-10-PCS; 2020-06-17)
DX: A41.9 Sepsis, unspecified organism (principal); U07.1 COVID-19; E11.10 Type 2 diabetes mellitus with ketoacidosis without coma; J96.00 Acute respiratory failure, unspecified whether with hypoxia or hypercapnia; J12.89 Other viral pneumonia; N17.0 Acute kidney failure with tubular necrosis; E43 Unspecified severe protein-calorie malnutrition; E87.1 Hypo-osmolality and hyponatremia; E87.2 Acidosis; N18.32 Chronic kidney disease, stage 3b; D72.810 Lymphocytopenia; I12.9 Hypertensive chronic kidney disease with stage 1 through stage 4 chronic kidney disease, or unspecified chronic kidney disease; G30.9 Alzheimer's disease, unspecified; F02.80 Dementia in other diseases classified elsewhere, unspecified severity, without behavioral disturbance, psychotic disturbance, mood disturbance, and anxiety; E11.42 Type 2 diabetes mellitus with diabetic polyneuropathy; F41.1 Generalized anxiety disorder; E87.5 Hyperkalemia; E11.65 Type 2 diabetes mellitus with hyperglycemia; E11.22 Type 2 diabetes mellitus with diabetic chronic kidney disease; E83.41 Hypermagnesemia; T39.395A Adverse effect of other nonsteroidal anti-inflammatory drugs [NSAID], initial encounter; G40.909 Epilepsy, unspecified, not intractable, without status epilepticus; T44.5X5A Adverse effect of predominantly beta-adrenoreceptor agonists, initial encounter; G89.4 Chronic pain syndrome; Z66 Do not resuscitate; Z51.5 Encounter for palliative care; E03.9 Hypothyroidism, unspecified; Z79.4 Long term (current) use of insulin; Z88.8 Allergy status to other drugs, medicaments and biological substances; Z83.3 Family history of diabetes mellitus; Z88.1 Allergy status to other antibiotic agents; Z90.710 Acquired absence of both cervix and uterus; Z82.3 Family history of stroke; Z82.0 Family history of epilepsy and other diseases of the nervous system; Z80.1 Family history of malignant neoplasm of trachea, bronchus and lung; Y92.89 Other specified places as the place of occurrence of the external cause; Z80.8 Family history of malignant neoplasm of other organs or systems; Z86.73 Personal history of transient ischemic attack (TIA), and cerebral infarction without residual deficits; Z90.49 Acquired absence of other specified parts of digestive tract; Z80.0 Family history of malignant neoplasm of digestive organs; Z82.49 Family history of ischemic heart disease and other diseases of the circulatory system; Z68.30 Body mass index [BMI] 30.0-30.9, adult

== ENCOUNTER 2020-06-18 14:23 | Inpatient (IN) | payer MEDICARE, MEDICAID ==
[~2020-06-18 14:23] MED LIST changes: +CELECOXIB200 M1 PO; +CENTRUM SILVER1 EAC2 PO; +CLARITIN10 MG PO; +COLACE100 MG PO; +CRESTOR40 M1 PO; +FERROUS SULFAT325 MG PO; +HUMULIN R500 UNIT/1 SC; +LEVETIRACETAM500 MG PO; +LISINOPRIL10 M1 PO; +PRESERVISION A1 EAC1 PO; +PRESERVISION A1 EAC2 PO; +PROAIR RESPICL90 MCG INH; +QUETIAPINE FUMA25 MG PO; +VITAMIN D350 MCG PO; +ZEGERID 40 MG1 EACH PO
[2020-06-18 16:00] VITALS: BP 114/47
--- NOTE | 2020-06-18 19:00 | NUR ---
REPORT RECEIVED FROM ARABELLA MARTÍNEZ.
--- NOTE | 2020-06-18 19:15 | NUR ---
FAMILY MEMBER CALLED AT THIS TIME, STATED SHE WAS SISTER AND PROVIDED PASSWORD. UPDATE GIVEN. PT LYING IN BED, EYES CLOSED. MORPHINE DRIP RUNNING PER ORDER. NO DISTRESS NOTED.
[2020-06-18 20:00] VITALS: BP 97/34
--- NOTE | 2020-06-18 21:00 | NUR ---
MORPHINE DRIP RUNNING AT THIS TIME. NONREBREATHER INTACT AT 15L. PULSE OX 95%. PT RESPIRATIONS EASY, NO DISTRESS NOTED. CALL LIGHT IN REACH
--- NOTE | 2020-06-18 23:20 | NUR ---
THIS RN AND TWO RN'S VERIFIED TIME OF FOR PT.
--- NOTE | 2020-06-18 23:30 | NUR ---
DR. MA NOTIFIED OF TIME OF .
--- NOTE | 2020-06-18 23:35 | NUR ---
SPOKE WITH SARAH ON PHONE. TO HER KNOWLEDGE NO FAMILY MEMBERS WILL BE IN TO SEE PT.
--- NOTE | 2020-06-18 23:41 | NUR ---
DR. MA NOTIFIED OF . STATED THAT DR. JERRY WOULD SIGN THE CERTIFICATE
--- NOTE | 2020-06-18 23:42 | NUR ---
25 ML OF MORPHINE FROM MORPHINE DRIP DISCARDED AND WASTED WITH JOHNATHAN FALCON RN.
--- NOTE | 2020-06-18 23:57 | NUR ---
SPOKE WITH ONE CALL FOR [facility] AT THIS TIME. BODY IS RELEASED, UNABLE TO BE DONOR.
--- NOTE | 2020-06-19 00:19 | NUR ---
[facility] Coroner's Transportation Coordinator , Betsy, notified of patient's . case reviewed. Body released by Supervisor Cleaning And Annealing's office to go to the home of family's choice.
--- NOTE | 2020-06-19 02:19 | NUR ---
PT KAILASH ALEXANDRE AT THIS TIME WITH BELONGINGS
== END 2020-06-19 03:26 | disposition expired | DRG 871 ==
LOC: 4E 14:23
PROVIDERS: ADMIT Internal Medicine; ATTEND Internal Medicine
PROC: XW033E5 Introduction of Remdesivir Anti-infective into Peripheral Vein, Percutaneous Approach, New Technology Group 5 (ICD-10-PCS; principal; 2020-06-18)
DX: A41.9 Sepsis, unspecified organism (principal); E11.10 Type 2 diabetes mellitus with ketoacidosis without coma; U07.1 COVID-19; J12.89 Other viral pneumonia; J96.00 Acute respiratory failure, unspecified whether with hypoxia or hypercapnia; N17.0 Acute kidney failure with tubular necrosis; E43 Unspecified severe protein-calorie malnutrition; E87.1 Hypo-osmolality and hyponatremia; Z51.5 Encounter for palliative care; R65.20 Severe sepsis without septic shock; D72.810 Lymphocytopenia; E87.5 Hyperkalemia; N18.31 Chronic kidney disease, stage 3a; E83.41 Hypermagnesemia; E11.65 Type 2 diabetes mellitus with hyperglycemia; I12.9 Hypertensive chronic kidney disease with stage 1 through stage 4 chronic kidney disease, or unspecified chronic kidney disease; E11.22 Type 2 diabetes mellitus with diabetic chronic kidney disease; E11.21 Type 2 diabetes mellitus with diabetic nephropathy; Z79.4 Long term (current) use of insulin; Z68.30 Body mass index [BMI] 30.0-30.9, adult; Z79.899 Other long term (current) drug therapy